=== PATIENT | male | born 1990 | race Caucasian/White ===

== ENCOUNTER 2016-08-27 18:08 | Emergency (ER) | payer OTHER ==
[2016-08-27] MEDS ORDERED: SODIUM CHLORIDE 0.9% 1,000 ML IV STA (18:17)
--- NOTE | 2016-08-27 18:39 | ED ---
General Adult HPI - General Chief complaint: Overdose Stated complaint: Overdose Time Seen by Provider: 08/27/16 18:10 Source: patient, RN notes reviewed, old records reviewed Mode of arrival: EMS Limitations: no limitations - History of Present Illness Initial comments: This is a 25-year-old male here for evaluation because patient presents here for evaluation of syncopal event. Patient was witnessed by bystanders to pass out, EMS arrived and administered Narcan brings patient to the hospital. Patient states that 2 [place] prior to work. He denies any other drugs or alcohol , patient is currently denying erroneous. Denies any complaints except for mild chest pain, CPR was done by bystanders - Related Data Home Medications Medication Instructions Recorded Confirmed HYDROcodone/APAP 10-325MG [[place] 2 tab PO ONCE PRN 08/27/16 08/27/16 10-325] Allergies Allergy/AdvReac Type Severity Reaction Status Date / Time No Known Allergies Allergy Verified 08/27/16 19:15 Review of Systems ROS Statement: Those systems with pertinent positive or pertinent negative responses have been documented in the HPI. ROS Other: All systems not noted in ROS Statement are negative. Past Medical History Past Medical History: No Reported History History of Any Multi-Drug Resistant Organisms: None Reported Past Surgical History: No Surgical Hx Reported Past Psychological History: No Psychological Hx Reported Smoking Status: Current every day smoker Past Alcohol Use History: None Reported Past Drug Use History: Heroin, Prescription Drug Abuse General Exam Limitations: no limitations General appearance: alert, in no apparent distress Head exam: Present: atraumatic, normocephalic, normal inspection Eye exam: Present: normal appearance, PERRL, EOMI. Absent: scleral icterus, conjunctival injection, periorbital swelling ENT exam: Present: normal exam, mucous membranes moist Neck exam: Present: normal inspection. Absent: tenderness, meningismus, lymphadenopathy Respiratory exam: Present: normal lung sounds bilaterally. Absent: respiratory distress, wheezes, rales, rhonchi, stridor Cardiovascular Exam: Present: regular rate, normal rhythm, normal heart sounds. Absent: systolic murmur, diastolic murmur, rubs, gallop, clicks GI/Abdominal exam: Present: soft, normal bowel sounds. Absent: distended, tenderness, guarding, rebound, rigid Extremities exam: Present: normal inspection, full ROM, normal capillary refill. Absent: tenderness, pedal edema, joint swelling, calf tenderness Back exam: Present: normal inspection Neurological exam: Present: alert, oriented X3, CN II-XII intact Psychiatric exam: Present: normal affect, normal mood Skin exam: Present: warm, dry, intact, normal color. Absent: rash Course Vital Signs 08/27/16 08/27/16 18:11 19:11 Temperature 97.8 F Pulse Rate 102 H 126 H Respiratory 18 17 Rate Blood Pressure 155/95 125/69 O2 Sat by Pulse 97 99 Oximetry - Reevaluation(s) Reevaluation #1: 08/27/16 19:30 Patient remains in no acute distress, continued to deny heroin use, awake and alert. Reevaluation #2: 08/27/16 19:30 Patient is medically clear for incarceration EKG Findings - EKG Comments: EKG Findings:: EKG shows sinus tachycardia rate 101, DC 160, QRS 102, QTC 443 Medical Decision Making - Medical Decision Making 20 Cytomel to ER for evaluation. Patient presents here for evaluation status post opiate overdose, response to Narcan, awake and alert, patient currently is denying heroin use. Denies any other drugs or alcohol. Patient will will be discharged home is in no acute distress, chest x-ray shows no fractures despite CPR. Patient can be discharged home - Lab Data Result diagrams: 08/27/16 18:42 08/27/16 18:42 Lab Results 08/27/16 08/27/16 08/27/16 Range/Units 18:42 18:42 18:42 WBC 10.1 (3.8-10.6) k/uL RBC 4.90 (4.30-5.90) m/uL Hgb 15.3 (13.0-17.5) gm/dL Hct 44.9 (39.0-53.0) % MCV 91.5 (80.0-100.0) fL MCH 31.1 (25.0-35.0) pg MCHC 34.0 (31.0-37.0) g/dL RDW 13.5 (11.5-15.5) % Plt Count 239 (150-450) k/uL Neutrophils % 64 % Lymphocytes % 27 % Monocytes % 5 % Eosinophils % 1 % Basophils % 1 % Neutrophils # 6.5 (1.3-7.7) k/uL Lymphocytes # 2.8 (1.0-4.8) k/uL Monocytes # 0.5 (0-1.0) k/uL Eosinophils # 0.1 (0-0.7) k/uL Basophils # 0.1 (0-0.2) k/uL PT (9.0-12.0) sec INR (<1.1) Sodium 139 (137-145) mmol/L Potassium 4.0 (3.5-5.1) mmol/L Chloride 105 (98-107) mmol/L Carbon Dioxide 20 L (22-30) mmol/L Anion Gap 14 mmol/L BUN 16 (9-20) mg/dL Creatinine 0.90 (0.66-1.25) mg/dL Est GFR (MDRD) Af Amer >60 (>60 ml/min/1.73 sqM) Est GFR (MDRD) Non-Af >60 (>60 ml/min/1.73 sqM) Glucose 120 H (74-99) mg/dL Calcium 9.2 (8.4-10.2) mg/dL Total Bilirubin 0.8 (0.2-1.3) mg/dL AST 57 (17-59) U/L ALT 43 (21-72) U/L Alkaline Phosphatase 63 (38-126) U/L Total Creatine Kinase 143 (55-170) U/L CK-MB (CK-2) 0.9 (0.0-2.4) ng/mL CK-MB (CK-2) Rel Index 0.6 Total Protein 7.6 (6.3-8.2) g/dL Albumin 4.9 (3.5-5.0) g/dL Lipase 105 (23-300) U/L Salicylates <1.0 mg/dL Acetaminophen <10.0 ug/mL Serum Alcohol 28 mg/dL 08/27/16 Range/Units 18:42 WBC (3.8-10.6) k/uL RBC (4.30-5.90) m/uL Hgb (13.0-17.5) gm/dL Hct (39.0-53.0) % MCV (80.0-100.0) fL MCH (25.0-35.0) pg MCHC (31.0-37.0) g/dL RDW (11.5-15.5) % Plt Count (150-450) k/uL Neutrophils % % Lymphocytes % % Monocytes % % Eosinophils % % Basophils % % Neutrophils # (1.3-7.7) k/uL Lymphocytes # (1.0-4.8) k/uL Monocytes # (0-1.0) k/uL Eosinophils # (0-0.7) k/uL Basophils # (0-0.2) k/uL PT 11.5 (9.0-12.0) sec INR 1.1 (<1.1) Sodium (137-145) mmol/L Potassium (3.5-5.1) mmol/L Chloride (98-107) mmol/L Carbon Dioxide (22-30) mmol/L Anion Gap mmol/L BUN (9-20) mg/dL Creatinine (0.66-1.25) mg/dL Est GFR (MDRD) Af Amer (>60 ml/min/1.73 sqM) Est GFR (MDRD) Non-Af (>60 ml/min/1.73 sqM) Glucose (74-99) mg/dL Calcium (8.4-10.2) mg/dL Total Bilirubin (0.2-1.3) mg/dL AST (17-59) U/L ALT (21-72) U/L Alkaline Phosphatase (38-126) U/L Total Creatine Kinase (55-170) U/L CK-MB (CK-2) (0.0-2.4) ng/mL CK-MB (CK-2) Rel Index Total Protein (6.3-8.2) g/dL Albumin (3.5-5.0) g/dL Lipase (23-300) U/L Salicylates mg/dL Acetaminophen ug/mL Serum Alcohol mg/dL - Radiology Data Radiology results: report reviewed (Chest x-ray is negative for acute disease), image reviewed Disposition Clinical Impression: Drug overdose, Poisoning by opiate or related narcotic Disposition: HOME SELF-CARE Condition: Good Instructions: Narcotic Abuse (ED), Opioid Overdose (ED) Referrals: Samuel Spencer MD [Primary Care Provider] - 1-2 days
[2016-08-27 18:52] LABS: Basophils # (A) 0.1 k/uL (0-0.2); Basophils % (A) 1 %; CH 31.2; CHCM 34.2; Eosinophils # (A) 0.1 k/uL (0-0.7); Eosinophils % (A) 1 %; HCT 44.9 % (39.0-53.0); HDW 2.08; HGB 15.3 gm/dL (13.0-17.5); Luc # (Auto) 0.18; Luc % (Auto) 2; Lymphocytes # (A) 2.8 k/uL (1.0-4.8); Lymphocytes % (A) 27 %; MCH 31.1 pg (25.0-35.0); MCV 91.5 fL (80.0-100.0); Mean Platelet Volume 7.3; Monocytes # (A) 0.5 k/uL (0-1.0); Monocytes % (A) 5 %; Neutrophils # (A) 6.5 k/uL (1.3-7.7); Neutrophils % (A) 64 %; RDW 13.5 % (11.5-15.5); WBC 10.1 k/uL (3.8-10.6); WBC (Perox) 9.63
[2016-08-27 18:55] LABS: INR 1.1 (<1.1); Prothrombin Time 11.5 sec (9.0-12.0)
[2016-08-27 18:59] LABS: ALT 43 U/L (21-72); AST 57 U/L (17-59); Acetaminophen <10.0 ug/mL; Alcohol 28 mg/dL; Alkaline Phosphatase 63 U/L (38-126); Anion Gap 14 mmol/L; Blood Urea Nitrogen 16 mg/dL (9-20); Calcium 9.2 mg/dL (8.4-10.2); Carbon Dioxide 20 mmol/L (22-30); Chloride 105 mmol/L (98-107); Glucose 120 mg/dL (74-99); Non-African American GFR(MDRD) >60 (>60 ml/min/1.73 sqM); Salicylate <1.0 mg/dL; Sodium 139 mmol/L (137-145); Total Bilirubin 0.8 mg/dL (0.2-1.3); Total Protein 7.6 g/dL (6.3-8.2)
[2016-08-27 19:20] LABS: Creatine Kinase MB 0.9 ng/mL (0.0-2.4)
[2016-08-27 19:58] LABS: Appearance,Urine Clear (Clear); Bilirubin,Urine Negative (Negative); Glucose,Urine (UA) Negative (Negative); Ketones,Urine Negative (Negative); Leukocyte Esterase,Urine Negative (Negative); Nitrite,Urine Negative (Negative); PH, Urine 6.5 (5.0-8.0); Protein,Urine Negative (Negative); Specific Gravity,Urine 1.013 (1.001-1.035); UA Billing (MACRO vs. MICRO) CHEM; Urobilinogen,Urine <2.0 mg/dL (<2.0)
--- NOTE | 2016-08-27 20:09 | XR ---
EXAMINATION TYPE: XR chest 2V DATE OF EXAM: 08/27/2016 COMPARISON: NONE HISTORY: Chest pain TECHNIQUE: Frontal and lateral views of the chest are obtained. FINDINGS: Heart and mediastinum are normal. Lungs are clear. Diaphragm is normal. There are chest le ads. Bony thorax is intact. IMPRESSION: Normal chest
[2016-08-27 21:11] VITALS: BP 119/65; PULSE 108; RESP 20; TEMP 98.1
== END 2016-08-27 21:11 | disposition home or self-care (01) ==
LOC: EC 18:08
DX: T40.601A Poisoning by unspecified narcotics, accidental (unintentional), initial encounter (principal); R07.9 Chest pain, unspecified; F17.200 Nicotine dependence, unspecified, uncomplicated
CPT/HCPCS: 36415; 71020; 80053; 80306; 80320; 81003; 82550; 82553; 83520; 83690; 85025; 85610; 93005; 99285

== ENCOUNTER 2017-07-26 18:52 | Emergency (ER) | payer OTHER ==
[2017-07-26 18:57] VITALS: RESP 16
--- NOTE | 2017-07-26 19:38 | ED ---
General Adult HPI - General Chief complaint: Wound/Laceration Stated complaint: dog bite on lip Time Seen by Provider: 07/26/17 19:04 Source: patient, RN notes reviewed Mode of arrival: ambulatory Limitations: no limitations - History of Present Illness Initial comments: 26-year-old male presents to the emergency department for a chief complaint of laceration to the right upper lip from a dog's tooth. Patient states this happened about an hour ago. Patient states he had his head against the dog's head when the dog moved and accidentally lacerated the patient's lip with a tooth. Patient states this was completely non-aggressive. Patient denies any other injuries. Patient denies any other lacerations or bites. Patient's last tetanus shot was less than 5 years ago. Patient has no other complaints at this time including fever, shortness of breath, chest pain, abdominal pain, nausea or vomiting, headache, or visual changes. - Related Data Previous Rx's Medication Instructions Recorded Amoxicillin/Potassium Clav 1 tab PO Q12HR #20 tab 07/26/17 [Augmentin 875-125 Tablet] Allergies Allergy/AdvReac Type Severity Reaction Status Date / Time No Known Allergies Allergy Verified 07/26/17 18:57 Review of Systems ROS Statement: Those systems with pertinent positive or pertinent negative responses have been documented in the HPI. ROS Other: All systems not noted in ROS Statement are negative. Past Medical History Past Medical History: No Reported History History of Any Multi-Drug Resistant Organisms: None Reported Past Surgical History: No Surgical Hx Reported Past Psychological History: No Psychological Hx Reported Smoking Status: Current every day smoker Past Alcohol Use History: Occasional Past Drug Use History: None Reported, Heroin, Prescription Drug Abuse General Exam Limitations: no limitations General appearance: alert, in no apparent distress Head exam: Present: atraumatic, normocephalic, normal inspection Eye exam: Present: normal appearance ENT exam: Present: normal oropharynx (no lacerations or punctures inside the mouth), normal external ear exam. Absent: normal exam (Patient has an external vertical 2 cm laceration to the right upper lip. Laceration does not extend through the entire lip. ) Neck exam: Present: normal inspection Respiratory exam: Present: normal lung sounds bilaterally. Absent: respiratory distress, wheezes, rales, rhonchi, stridor Cardiovascular Exam: Present: regular rate, normal rhythm, normal heart sounds. Absent: systolic murmur, diastolic murmur, rubs, gallop, clicks Course Vital Signs 07/26/17 18:53 Temperature 98.1 F Pulse Rate 99 Respiratory 16 Rate Blood Pressure 127/57 O2 Sat by Pulse 98 Oximetry Medical Decision Making - Medical Decision Making 26-year-old male presents to the emergency department for a chief complaint of laceration to the right upper lip. Patient lacerated her lip on a dog's tooth. It was nonaggressive. Patient does not want to fill out dog bite paperwork. Patient's last tetanus shot was less than 5 years ago. The 2 cm laceration is on the external right upper lip. It does not extend through the entire lip. No other injuries on the patient. Patient is in no distress. No lacerations or punctures inside the mouth. Wound was numbed with lidocaine and cleaned thoroughly with saline jet irrigation and iodine. One suture was used to tack the wound together while allowing for drainage of any foreign bacteria and prevention of infection. Patient was given a prescription for Augmentin. He will return to the emergency department if he notices any worsening symptoms or signs of infection such as spreading redness or drainage and fever. These were discussed with the patient. He will take Motrin and Tylenol for pain. He will follow up with primary care in 1-2 days. Disposition Clinical Impression: Laceration, Dog bite of skin of lip Disposition: HOME SELF-CARE Condition: Good Instructions: Animal Bite (ED), Care For Your Stitches (ED), Laceration (ED) Additional Instructions: Please take Motrin and Tylenol for pain. Please take antibiotic as directed. Return to the emergency department in 5 days to have suture removed. Return earlier if you notice any signs of infection such as spreading redness, drainage , or fever. Follow-up with primary care in 1-2 days. Prescriptions: Amoxicillin/Potassium Clav [Augmentin 875-125 Tablet] 1 tab PO Q12HR #20 tab Is patient prescribed a controlled substance at d/c from ED?: No Referrals: Samuel Spencer MD [STAFF PHYSICIAN] - 1-2 days Time of Disposition: 19:37
[2017-07-26 19:45] VITALS: BP 116/57; PULSE 70; TEMP 97.6
== END 2017-07-26 19:43 | disposition home or self-care (01) ==
LOC: EC 18:52
DX: S01.551A Open bite of lip, initial encounter (principal); F17.200 Nicotine dependence, unspecified, uncomplicated; W54.0XXA Bitten by dog, initial encounter
CPT/HCPCS: 99282

== ENCOUNTER 2018-12-24 14:27 | Emergency (ER) | payer OTHER ==
[2018-12-24 14:51] VITALS: RESP 18; TEMP 97.4
[2018-12-24 16:16] LABS: Basophils % (A) 0 %; Eosinophils # (A) 0.1 k/uL (0-0.7); Eosinophils % (A) 1 %; HCT 46.5 % (39.0-53.0); HGB 15.6 gm/dL (13.0-17.5); Lymphocytes # (A) 2.8 k/uL (1.0-4.8); Lymphocytes % (A) 37 %; MCH 30.4 pg (25.0-35.0); MCHC 33.5 g/dL (31.0-37.0); MCV 90.7 fL (80.0-100.0); Mean Platelet Volume 5.4; Monocytes # (A) 0.5 k/uL (0-1.0); Monocytes % (A) 6 %; Neutrophils % (A) 53 %; Platelet Count 311 k/uL (150-450); RBC 5.13 m/uL (4.30-5.90); RDW 12.9 % (11.5-15.5); WBC 7.6 k/uL (3.8-10.6)
--- NOTE | 2018-12-24 16:17 | XR ---
EXAMINATION TYPE: XR chest 2V DATE OF EXAM: 12/24/2018 COMPARISON: NONE HISTORY: Chest pain TECHNIQUE: Frontal and lateral views of the chest are obtained. FINDINGS: There is no focal air space opacity. No evidence for pneumothorax. No pleural effusion. The cardiac silhouette size is within normal limits. The osseous structures are grossly intact. IMPRESSION: 1. No acute cardiopulmonary process.
[2018-12-24 16:22] LABS: ALT 91 U/L (21-72); AST 48 U/L (17-59); Acetaminophen <10.0 ug/mL; African American GFR (CKD) >90 (>60 ml/min/1.73 sqM); Albumin 4.8 g/dL (3.5-5.0); Alcohol <10 mg/dL; Alkaline Phosphatase 60 U/L (38-126); Anion Gap 9 mmol/L; Blood Urea Nitrogen 9 mg/dL (9-20); Calcium 10.2 mg/dL (8.4-10.2); Carbon Dioxide 28 mmol/L (22-30); Chloride 104 mmol/L (98-107); Glucose 105 mg/dL (74-99); Potassium 4.3 mmol/L (3.5-5.1); Salicylate <1.0 mg/dL; Sodium 141 mmol/L (137-145); Total Bilirubin 0.6 mg/dL (0.2-1.3); Total Protein 8.3 g/dL (6.3-8.2)
--- NOTE | 2018-12-24 16:41 | CT ---
EXAMINATION TYPE: CT brain wo con DATE OF EXAM: 12/24/2018 COMPARISON: None HISTORY: altered mental status, insomnia CT DLP: 1029.[address] of the brain was performed. The ventricles, basal cisterns and sulci overlying the cerebral convexities demonstrate a normal appe arance. There is no evidence for intracranial hemorrhage or sulcal effacement. No mass effects are seen. Osseous calvarium is intact. If symptoms persist consider MRI as clinically warranted. IMPRESSION: 1. No acute intracranial process is seen at this time.
[2018-12-24 17:37] LABS: Amorphous Sediment,Urine Rare /hpf; Appearance,Urine Turbid (Clear); Bilirubin,Urine Negative (Negative); Blood,Urine Negative (Negative); Color,Urine Yellow; Glucose,Urine (UA) Negative (Negative); Granular Casts,Urine 7 /lpf (0); Ketones,Urine Negative (Negative); Leukocyte Esterase,Urine Negative (Negative); Mucus,Urine Few /hpf; Nitrite,Urine Negative (Negative); Protein,Urine Trace (Negative); Specific Gravity,Urine 1.022 (1.001-1.035)
[2018-12-24 17:44] LABS: Amphetamine Screen,Urine Not Detected (NotDetected); Barbiturate Screen,Urine Not Detected (NotDetected); Benzodiazepines Screen,Urine Not Detected (NotDetected); Cocaine Screen,Urine Not Detected (NotDetected); Methadone Screen, Urine Not Detected (NotDetected); Opiate Screen,Urine Not Detected (NotDetected); Oxycodone Screen, Urine Not Detected (NotDetected); Phencyclidine Screen,Urine Not Detected (NotDetected); Tricyclic Antidepressant,Urine Not Detected (NotDetected); Urn Cannabinoid Scrn Not Detected (NotDetected)
--- NOTE | 2018-12-24 18:10 | ED ---
General Adult HPI - General Chief complaint: Dizziness Stated complaint: Dizziness Time Seen by Provider: 12/24/18 14:50 Source: patient Mode of arrival: ambulatory Limitations: no limitations - History of Present Illness Initial comments: The patient is a 28-year-old male with no past medical history presents to the emergency room with reported insomnia and dizziness for the past month. He reports that his symptoms have been progressively getting worse. States that he suffers from extreme anxiety. He has had difficulty sleeping. Will only get 1- 2 hours of sleep per night. States that during the day he will have the sensation of being off balance. Denies vertiginous symptoms or presyncopal episodes. Denies any blunt head trauma. No visual changes or headaches. No fevers or chills. No reported seizure-like activity. Denies any use of [id number] medications or illicit drugs. Denies any unilateral numbness or weakness. He was with his mother today. Reportedly got very dizzy and had difficulty walking. They did decide to transport him to the hospital. On the way in they reported that the patient was hallucinating. Patient reported on 3 different occasions that he thought they were in the wrong hy[place]. While sitting in the waiting room, the patient reached for remote that wasn't there. States he has had visual changes like this before. It happened several months ago where he thought he saw blood in his bed and ended up calling EMS. No confusion reported from family members at this time. He denies any changes in his bowel or bladder habits. No chest pain or shortness of breath. There are no other alleviating, precipitating or modifying factors - Related Data Previous Rx's Medication Instructions Recorded Amoxicillin/Potassium Clav 1 tab PO Q12HR #20 tab 07/26/17 [Augmentin 875-125 Tablet] Allergies Allergy/AdvReac Type Severity Reaction Status Date / Time No Known Allergies Allergy Verified 12/24/18 14:51 Review of Systems ROS Statement: Those systems with pertinent positive or pertinent negative responses have been documented in the HPI. ROS Other: All systems not noted in ROS Statement are negative. Past Medical History Past Medical History: No Reported History History of Any Multi-Drug Resistant Organisms: None Reported Past Surgical History: No Surgical Hx Reported Past Psychological History: No Psychological Hx Reported Smoking Status: Current every day smoker Past Alcohol Use History: None Reported Past Drug Use History: None Reported, Heroin, Prescription Drug Abuse General Exam Limitations: no limitations General appearance: alert, in no apparent distress Head exam: Present: atraumatic, normocephalic, normal inspection Eye exam: Present: normal appearance, PERRL, EOMI. Absent: scleral icterus, conjunctival injection, periorbital swelling ENT exam: Present: normal exam, mucous membranes moist Neck exam: Present: normal inspection. Absent: tenderness, meningismus, lymphadenopathy Respiratory exam: Present: normal lung sounds bilaterally. Absent: respiratory distress, wheezes, rales, rhonchi, stridor Cardiovascular Exam: Present: regular rate, normal rhythm, normal heart sounds. Absent: systolic murmur, diastolic murmur, rubs, gallop, clicks GI/Abdominal exam: Present: soft, normal bowel sounds. Absent: distended, tenderness, guarding, rebound, rigid Extremities exam: Present: normal inspection, full ROM, normal capillary refill. Absent: tenderness, pedal edema, joint swelling, calf tenderness Back exam: Present: normal inspection Neurological exam: Present: alert, oriented X3, CN II-XII intact Psychiatric exam: Present: normal affect, normal mood Skin exam: Present: warm, dry, intact, normal color. Absent: rash Course Vital Signs 12/24/18 12/24/18 14:48 18:16 Temperature 97.4 F L Pulse Rate 85 72 Respiratory 18 18 Rate Blood Pressure 125/76 122/74 O2 Sat by Pulse 98 98 Oximetry EKG Findings - EKG Comments: EKG Findings:: EKG demonstrates a normal sinus rhythm with a ventricular rate of 74. [place] interval is 172. QRS 90. QTC of 406. There are no acute ST segment elevations or depressions concerning for ischemic changes Medical Decision Making - Medical Decision Making Upon arrival the patient is placed in room 23. There are history of physical exam was performed. We did complete a 12-lead EKG in the patient. I did recommend laboratory studies and a CT the patient's brain. Laboratory studies are essentially unremarkable. Urinalysis shows few mucus. Salicylate, acetaminophen and alcohol is negative. Urine drug screen is negative. CT of the patient's brain is unremarkable. I do and to the room to tell the patient his results. He is dressed and stating that he is ready to go home. I do believe that the patient needs further workup. This includes an EEG and MRI. The patient and his family at bedside understood this. I did refer him to Dr. Riley's office as he does not have a primary care physician. The patient has any new or worsening symptoms he should be brought back to the emergency room. I instructed he shouldn't drive while having these abnormal symptoms. He understood. He is discharged home in stable condition - Lab Data Result diagrams: 12/24/18 16:04 12/24/18 16:04 Lab Results 12/24/18 12/24/18 12/24/18 Range/Units 16:04 16:04 17:19 WBC 7.6 (3.8-10.6) k/uL RBC 5.13 (4.30-5.90) m/uL Hgb 15.6 (13.0-17.5) gm/dL Hct 46.5 (39.0-53.0) % MCV 90.7 (80.0-100.0) fL MCH 30.4 (25.0-35.0) pg MCHC 33.5 (31.0-37.0) g/dL RDW 12.9 (11.5-15.5) % Plt Count 311 (150-450) k/uL Neutrophils % 53 % Lymphocytes % 37 % Monocytes % 6 % Eosinophils % 1 % Basophils % 0 % Neutrophils # 4.0 (1.3-7.7) k/uL Lymphocytes # 2.8 (1.0-4.8) k/uL Monocytes # 0.5 (0-1.0) k/uL Eosinophils # 0.1 (0-0.7) k/uL Basophils # 0.0 (0-0.2) k/uL Sodium 141 (137-145) mmol/L Potassium 4.3 (3.5-5.1) mmol/L Chloride 104 (98-107) mmol/L Carbon Dioxide 28 (22-30) mmol/L Anion Gap 9 mmol/L BUN 9 (9-20) mg/dL Creatinine 0.84 (0.66-1.25) mg/dL Est GFR (CKD-EPI)AfAm >90 (>60 ml/min/1.73 sqM) Est GFR (CKD-EPI)NonAf >90 (>60 ml/min/1.73 sqM) Glucose 105 H (74-99) mg/dL Calcium 10.2 (8.4-10.2) mg/dL Total Bilirubin 0.6 (0.2-1.3) mg/dL AST 48 (17-59) U/L ALT 91 H (21-72) U/L Alkaline Phosphatase 60 (38-126) U/L Total Protein 8.3 H (6.3-8.2) g/dL Albumin 4.8 (3.5-5.0) g/dL TSH 1.270 (0.465-4.680) mIU/L Urine Color Yellow Urine Appearance Turbid (Clear) Urine pH 7.0 (5.0-8.0) Ur Specific [place] 1.022 (1.001-1.035) Urine Protein Trace H (Negative) Urine Glucose (UA) Negative (Negative) Urine Ketones Negative (Negative) Urine Blood Negative (Negative) Urine Nitrite Negative (Negative) Urine Bilirubin Negative (Negative) Urine Urobilinogen 2.0 (<2.0) mg/dL Ur Leukocyte Esterase Negative (Negative) Amorphous Sediment Rare H (None) /hpf Granular Casts 7 (0) /lpf Urine Mucus Few H (None) /hpf Salicylates <1.0 mg/dL Urine Opiates Screen Not Detected (NotDetected) Ur Oxycodone Screen Not Detected (NotDetected) Urine Methadone Screen Not Detected (NotDetected) Ur Propoxyphene Screen Not Detected (NotDetected) Acetaminophen <10.0 ug/mL Ur Barbiturates Screen Not Detected (NotDetected) U Tricyclic Antidepress Not Detected (NotDetected) Ur Phencyclidine Scrn Not Detected (NotDetected) Ur Amphetamines Screen Not Detected (NotDetected) U Methamphetamines Scrn Not Detected (NotDetected) U Benzodiazepines Scrn Not Detected (NotDetected) Urine Cocaine Screen Not Detected (NotDetected) U Marijuana (THC) Screen Not Detected (NotDetected) Serum Alcohol <10 mg/dL Disposition Clinical Impression: Ataxia Disposition: HOME SELF-CARE Condition: Serious Instructions (If sedation given, give patient instructions): Dizziness (ED) Additional Instructions: Please return to the emergency department for any new or worsening symptoms. You need to follow up with a primary care doctor and have further studies performed to include an EEG and an MRI. Is patient prescribed a controlled substance at d/c from ED?: No Referrals: None,Stated [Primary Care Provider] - 1-2 days Mike Riley MD [REFERRING] - 1-2 days Time of Disposition: 18:09
[2018-12-24 18:18] VITALS: BP 122/74; PULSE 72
== END 2018-12-24 18:17 | disposition home or self-care (01) ==
LOC: EC 14:27
DX: R27.0 Ataxia, unspecified (principal); F41.9 Anxiety disorder, unspecified; F17.200 Nicotine dependence, unspecified, uncomplicated; F19.10 Other psychoactive substance abuse, uncomplicated
CPT/HCPCS: 36415; 93005; 80053; 84443; 85025; 81001; 80306; 83520; 71046; 70450; 99284; G0480 ×2; 80320; 80329

== ENCOUNTER 2020-11-07 11:02 | Inpatient (IN) | payer OTHER ==
[2020-11-07] MEDS ORDERED: SODIUM CHLORIDE 0.9% 1,000 ML IV STA ×2 (11:33→11:36)
--- NOTE | 2020-11-07 11:38 | ED ---
General Adult HPI - General Chief complaint: Skin/Abscess/Foreign Body Stated complaint: Rt Arm Swelling/Vomiting Time Seen by Provider: 11/07/20 11:13 Source: patient, RN notes reviewed Mode of arrival: wheelchair Limitations: no limitations - History of Present Illness Initial comments: 29-year-old male presents to the emergency room for a chief complaint of right arm infection. Patient states that 2 weeks ago he relapsed on heroin. States that he last used the right arm 3-4 days ago and the infection started around that time. Patient had a fever of 100.9 today. States it is painful to move his elbow but he is able to do so. Patient has also not been eating or drinking much and has been vomiting for the past couple weeks that he thinks is related to his relapse. However it has worsened in the past few days he does feel dehydrated. - Related Data Home Medications Medication Instructions Recorded Confirmed No Known Home Medications 11/07/20 11/07/20 Allergies Allergy/AdvReac Type Severity Reaction Status Date / Time No Known Allergies Allergy Verified 11/07/20 11:54 Review of Systems ROS Statement: Those systems with pertinent positive or pertinent negative responses have been documented in the HPI. ROS Other: All systems not noted in ROS Statement are negative. Past Medical History Past Medical History: No Reported History History of Any Multi-Drug Resistant Organisms: None Reported Past Surgical History: No Surgical Hx Reported Past Psychological History: No Psychological Hx Reported Smoking Status: Current every day smoker Past Alcohol Use History: None Reported Past Drug Use History: Heroin, Prescription Drug Abuse General Exam Limitations: no limitations General appearance: alert Head exam: Present: atraumatic Eye exam: Present: normal appearance, PERRL, EOMI. Absent: scleral icterus, conjunctival injection ENT exam: Present: normal exam, mucous membranes moist Neck exam: Present: normal inspection, full ROM. Absent: tenderness Respiratory exam: Present: normal lung sounds bilaterally. Absent: respiratory distress, wheezes Cardiovascular Exam: Present: regular rate, normal rhythm, normal heart sounds GI/Abdominal exam: Present: soft, normal bowel sounds. Absent: distended, tenderness Extremities exam: Present: full ROM (Full range of motion of the right wrist elbow and shoulder.), tenderness (Tenderness to the right upper extremity), normal capillary refill (cap refill less than 2 seconds, radial pulse 2+.), other (Patient has significant erythema with mild edema extending from the mid forearm volar aspect up through the proximal humeral area.) Course Vital Signs 11/07/20 11:06 Temperature 98.5 F Pulse Rate 114 H Respiratory 18 Rate Blood Pressure 118/58 O2 Sat by Pulse 95 Oximetry Medical Decision Making - Medical Decision Making patient presents with a 103.2 fever. Tachycardia of 114 likely secondary to fever. Physical exam does reveal significant cellulitis of the right arm. I do not appreciate any area concerning for abscess at this time. White count is 14.6 with a left shift. Lactic acid normal 1.4. CRP is elevated 15.7. Notably patient does have a hyponatremia of 123. Patient was given a liter of fluids but will be put on 75 mL NS per hour. Patient was given Rocephin initially. He will be started on vancomycin. We will transition him to Unasyn instead of Rocephin. Case discussed with Dr. Rojas. Pt admitted. - Lab Data Result diagrams: 11/07/20 11:52 11/07/20 11:52 Lab Results 11/07/20 11/07/20 11/07/20 Range/Units 11:52 11:52 11:52 WBC 14.6 H (3.8-10.6) k/uL RBC 4.64 (4.30-5.90) m/uL Hgb 14.6 (13.0-17.5) gm/dL Hct 40.7 (39.0-53.0) % MCV 87.8 (80.0-100.0) fL MCH 31.4 (25.0-35.0) pg MCHC 35.8 (31.0-37.0) g/dL RDW 12.0 (11.5-15.5) % Plt Count 162 (150-450) k/uL MPV 8.9 Neutrophils % 88 % Lymphocytes % 4 % Monocytes % 7 % Eosinophils % 0 % Basophils % 0 % Neutrophils # 12.9 H (1.3-7.7) k/uL Lymphocytes # 0.5 L (1.0-4.8) k/uL Monocytes # 1.1 H (0-1.0) k/uL Eosinophils # 0.0 (0-0.7) k/uL Basophils # 0.0 (0-0.2) k/uL Sodium 123 L (137-145) mmol/L Potassium 4.1 (3.5-5.1) mmol/L Chloride 87 L (98-107) mmol/L Carbon Dioxide 26 (22-30) mmol/L Anion Gap 10 mmol/L BUN 13 (9-20) mg/dL Creatinine 0.72 (0.66-1.25) mg/dL Est GFR (CKD-EPI)AfAm >90 (>60 ml/min/1.73 sqM) Est GFR (CKD-EPI)NonAf >90 (>60 ml/min/1.73 sqM) Glucose 153 H (74-99) mg/dL Plasma Lactic Acid Steven 1.4 (0.7-2.0) mmol/L Calcium 8.3 L (8.4-10.2) mg/dL Total Bilirubin 0.8 (0.2-1.3) mg/dL AST 67 H (17-59) U/L ALT 52 H (4-49) U/L Alkaline Phosphatase 77 (38-126) U/L C-Reactive Protein 15.7 H (<1.0) mg/dL Total Protein 6.5 (6.3-8.2) g/dL Albumin 3.3 L (3.5-5.0) g/dL Disposition Clinical Impression: Fever, Cellulitis, IV drug abuse, Leukocytosis Disposition: ADMITTED IP TO THIS HOSP Is patient prescribed a controlled substance at d/c from ED?: No Referrals: None,Stated [Primary Care Provider] - 1-2 days Time of Disposition: 13:18
[2020-11-07] MEDS ORDERED: cefTRIAXone IN SWFI 1,000 MG/10 ML SYRINGE IVP STA (11:39)
[2020-11-07] MEDS ORDERED: ACETAMINOPHEN TAB 500 MG TAB PO STA (12:01)
[2020-11-07] MEDS ORDERED: KETOROLAC 15 MG/ML 1 ML VIAL IVP STA (12:01)
[2020-11-07] MEDS ORDERED: ONDANSETRON 4 MG/2 ML VIAL IVP STA (12:02)
--- NOTE | 2020-11-07 12:14 | XR ---
EXAMINATION TYPE: XR forearm RT DATE OF EXAM: 11/07/2020 COMPARISON: NONE HISTORY: Pain Two views of the forearm demonstrate that the osseous structures appear to be intact and the joint sp aces appear to be preserved. There is no acute fracture or dislocation. View soft tissue tissue dougie a noted. IMPRESSION: 1. Soft tissue edema.
--- NOTE | 2020-11-07 12:16 | XR ---
EXAMINATION TYPE: XR humerus RT DATE OF EXAM: 11/07/2020 COMPARISON: NONE HISTORY: Pain and swelling TECHNIQUE: 2 views submitted. FINDINGS: The osseous structures are intact and the joint spaces are preserved. Soft tissue edema noted. Nonsp ecific cortical thickening involving the distal diaphysis of the humerus seen on the oblique view onl y. IMPRESSION: 1. Soft tissue edema.
[2020-11-07] MEDS ORDERED: VANCOMYCIN IV PER PHARMACY 1 EACH MISC MISCELLANE PRN (12:32)
[2020-11-07] MEDS ORDERED: VANCOMYCIN 1,250 MG in SODIUM CHLORIDE 0.9% 250 ML IVPB STA (12:36)
[2020-11-07 12:38] LABS: ALT 52 U/L (4-49); AST 67 U/L (17-59); African American GFR (CKD) >90 (>60 ml/min/1.73 sqM); Albumin 3.3 g/dL (3.5-5.0); Alkaline Phosphatase 77 U/L (38-126); Anion Gap 10 mmol/L; Blood Urea Nitrogen 13 mg/dL (9-20); Calcium 8.3 mg/dL (8.4-10.2); Carbon Dioxide 26 mmol/L (22-30); Chloride 87 mmol/L (98-107); Glucose 153 mg/dL (74-99); Non-African American GFR(CKD) >90 (>60 ml/min/1.73 sqM); Potassium 4.1 mmol/L (3.5-5.1); Sodium 123 mmol/L (137-145); Total Bilirubin 0.8 mg/dL (0.2-1.3); Total Protein 6.5 g/dL (6.3-8.2)
[2020-11-07 12:46] LABS: Basophils % (A) 0 %; Eosinophils % (A) 0 %; HCT 40.7 % (39.0-53.0); HGB 14.6 gm/dL (13.0-17.5); Lymphocytes # (A) 0.5 k/uL (1.0-4.8); Lymphocytes % (A) 4 %; MCH 31.4 pg (25.0-35.0); MCHC 35.8 g/dL (31.0-37.0); MCV 87.8 fL (80.0-100.0); Mean Platelet Volume 8.9; Monocytes # (A) 1.1 k/uL (0-1.0); Monocytes % (A) 7 %; Neutrophils # (A) 12.9 k/uL (1.3-7.7); Neutrophils % (A) 88 %; Platelet Count 162 k/uL (150-450); RBC 4.64 m/uL (4.30-5.90); WBC 14.6 k/uL (3.8-10.6)
[2020-11-07 12:50] LABS: C Reactive Protein 15.7 mg/dL (<1.0)
[2020-11-07] MEDS ORDERED: ONDANSETRON 4 MG/2 ML VIAL IVP PRN (13:03)
[2020-11-07] MEDS ORDERED: NALOXONE 0.4 MG/ML 1 ML VIAL IV PRN (13:03)
[2020-11-07] MEDS ORDERED: ACETAMINOPHEN TAB 325 MG TAB PO PRN (13:03)
--- NOTE | 2020-11-07 16:33 | P.HPIM ---
History of Present Illness H&P Date: 11/07/20 This is a 29-year-old male with past medical history of IV heroin abuse who presented to the hospital with worsening right arm pain and swelling. Patient said that this is being going on for a few days and getting progressively worse. He reports fevers and chills at home. He reports feeling nauseated and poor by mouth intake. His mom is at bedside and informed me that patient was clean for some time and now he had a relapse of IV heroin use. Review of Systems Review of system: 14 points review of systems were obtained and were negative except to what were mentioned in the HPI. Past Medical History Past Medical History: No Reported History History of Any Multi-Drug Resistant Organisms: None Reported Past Surgical History: No Surgical Hx Reported Past Psychological History: No Psychological Hx Reported Smoking Status: Current every day smoker Past Alcohol Use History: None Reported Past Drug Use History: Heroin, Prescription Drug Abuse Medications and Allergies Home Medications Medication Instructions Recorded Confirmed Type No Known Home Medications 11/07/20 11/07/20 History Allergies Allergy/AdvReac Type Severity Reaction Status Date / Time No Known Allergies Allergy Verified 11/07/20 11:54 Physical Exam Vitals: Vital Signs Temp Pulse Resp BP Pulse Ox 11/07/20 15:36 98.8 F 102 H 18 127/68 98 11/07/20 11:06 98.5 F 114 H 18 118/58 95 Intake and Output 11/07/20 11/07/20 11/07/20 06:59 14:59 22:59 Other: Weight 68.039 kg General: The patient is awake and alert, in no distress Eye: there is normal conjunctiva bilaterally. Neck: The neck is supple, there is no JVD. Cardiovascular: Normal S1-S2, no S3-S4, no murmurs. Respiratory: Lungs clear to auscultation bilaterally Gastrointestinal: Abdomen is soft, nontender Musculoskeletal: There is no pedal edema. There is significant erythema in the mid arm area extending from the forearm all the way through the proximal humeral area. There is suspicious induration Neurological:. Speech is normal. Skin: Skin is warm and dry Results CBC & Chem 7: 11/07/20 11:52 11/07/20 11:52 Labs: Abnormal Lab Results - Last 24 Hours (Table) 11/07/20 11/07/20 Range/Units 11:52 11:52 WBC 14.6 H (3.8-10.6) k/uL Neutrophils # 12.9 H (1.3-7.7) k/uL Lymphocytes # 0.5 L (1.0-4.8) k/uL Monocytes # 1.1 H (0-1.0) k/uL Sodium 123 L (137-145) mmol/L Chloride 87 L (98-107) mmol/L Glucose 153 H (74-99) mg/dL Calcium 8.3 L (8.4-10.2) mg/dL AST 67 H (17-59) U/L ALT 52 H (4-49) U/L C-Reactive Protein 15.7 H (<1.0) mg/dL Albumin 3.3 L (3.5-5.0) g/dL Assessment and Plan Assessment: 1. Sepsis without septic shock 2. Right arm cellulitis with concerns about possible abscess formation 3. Hypovolemic hyponatremia 4. IV heroin abuse Today, I reviewed his medication list and lab work results. Patient started on broad-spectrum antibiotic with IV vancomycin and Unasyn. Blood culture sent and pending. I would obtain ultrasound of the right upper extremity to rule out abscess formation. Continue supportive care otherwise. Aggressive IV fluid hydration. Sodium level every 6 hours. Avoid overcorrection. Keep sodium less than 135. Patient was counseled extensively about the importance of stopping using drugs.
--- NOTE | 2020-11-07 17:13 | US ---
EXAMINATION TYPE: US extremity nonvasc mass RT DATE OF EXAM: 11/07/2020 COMPARISON: NONE CLINICAL HISTORY: r/u RUE abscess. Right upper arm redness. Scanning was performed directly over right upper arm redness. There is edema noted. There is not a dr felinable fluid collection seen. There is thrombosed vessel seen. This appears to be the cephalic vein. It is thrombosed without flow and non compressible. IMPRESSION: Findings consistent with thrombophlebitis of the cephalic vein. No evidence of fluid collection.
[2020-11-07] MEDS: AMPICILLIN-SULBACTAM 3 GM in SODIUM CHLORIDE 0.9% 100 ML IVPB SCH ×2 (18:08→23:18)
[2020-11-07] MEDS: SODIUM CHLORIDE 0.9% 1,000 ML IV SCH (18:08)
[2020-11-07 20:18] LABS: C Reactive Protein 8.5 mg/dL (<1.0)
[2020-11-07] MEDS: VANCOMYCIN 1,250 MG in SODIUM CHLORIDE 0.9% 250 ML IVPB SCH (20:42)
[2020-11-07] MEDS: KETOROLAC 15 MG/ML 1 ML VIAL IVP PRN (21:47)
[2020-11-08] MEDS: VANCOMYCIN 1,250 MG in SODIUM CHLORIDE 0.9% 250 ML IVPB SCH ×3 (05:21→21:40)
[2020-11-08 05:58] LABS: Basophils % (A) 0 %; Eosinophils % (A) 0 %; HCT 40.4 % (39.0-53.0); HGB 14.1 gm/dL (13.0-17.5); Lymphocytes % (A) 8 %; MCH 31.7 pg (25.0-35.0); MCHC 34.9 g/dL (31.0-37.0); MCV 90.9 fL (80.0-100.0); Mean Platelet Volume 8.9; Monocytes # (A) 0.5 k/uL (0-1.0); Monocytes % (A) 4 %; Neutrophils # (A) 9.9 k/uL (1.3-7.7); Neutrophils % (A) 84 %; Platelet Count 157 k/uL (150-450); RBC 4.44 m/uL (4.30-5.90); RDW 12.1 % (11.5-15.5); WBC 11.8 k/uL (3.8-10.6)
[2020-11-08] MEDS: SODIUM CHLORIDE 0.9% 1,000 ML IV SCH (06:20)
[2020-11-08] MEDS: AMPICILLIN-SULBACTAM 3 GM in SODIUM CHLORIDE 0.9% 100 ML IVPB SCH ×3 (07:54→17:49)
[2020-11-08 10:08] LABS: Anion Gap 6.6 mmol/L (4.00-12.00); BUN/Creat Ratio 16.25 Ratio (12.00-20.00); Calcium 7.8 mg/dL (8.7-10.3); Carbon Dioxide 27.4 mmol/L (21.6-31.8); Potassium 3.4 mmol/L (3.5-5.5)
[2020-11-08] MEDS ORDERED: POTASSIUM CHLORIDE ER 20 MEQ TAB.ER PO STA (14:41)
--- NOTE | 2020-11-08 14:44 | P.PN ---
Subjective Patient is doing about the same compared to yesterday. Right arm is swollen and red is not improved compared to yesterday. Objective - Vital Signs Vital signs: Vital Signs Temp 97.6 F 11/08/20 12:25 Pulse 84 11/08/20 12:25 Resp 14 11/08/20 12:25 BP 112/64 11/08/20 13:32 Pulse Ox 99 11/08/20 12:25 Intake & Output 11/07/20 11/08/20 11/08/20 18:59 06:59 18:59 Intake Total 200 590 Balance 200 590 Weight 68.039 kg Intake: Oral 200 590 Other: Voiding Method Toilet Toilet Urinal Urinal # Voids 2 - Exam General: The patient is awake and alert, in no distress Eye: there is normal conjunctiva bilaterally. Neck: The neck is supple, there is no JVD. Cardiovascular: Normal S1-S2, no S3-S4, no murmurs. Respiratory: Lungs clear to auscultation bilaterally Gastrointestinal: Abdomen is soft, nontender Musculoskeletal: There is no pedal edema. Neurological:. Speech is normal. Skin: Skin is warm and dry - Labs CBC & Chem 7: 11/08/20 05:32 11/08/20 05:32 Labs: Abnormal Lab Results - Last 24 Hours (Table) 11/07/20 11/07/20 11/07/20 Range/Units 19:03 19:03 19:03 WBC (3.8-10.6) k/uL Neutrophils # (1.3-7.7) k/uL ESR 37 H (0-15) mm/Hr Sodium 127 L 128 L (137-145) mmol/L Potassium (3.5-5.5) mmol/L Glucose (70-110) mg/dL Calcium (8.7-10.3) mg/dL C-Reactive Protein 8.5 H (<1.0) mg/dL 11/08/20 11/08/20 Range/Units 05:32 05:32 WBC 11.8 H (3.8-10.6) k/uL Neutrophils # 9.9 H (1.3-7.7) k/uL ESR (0-15) mm/Hr Sodium 132 L (137-145) mmol/L Potassium 3.4 L (3.5-5.5) mmol/L Glucose 129 H (70-110) mg/dL Calcium 7.8 L (8.7-10.3) mg/dL C-Reactive Protein (<1.0) mg/dL Microbiology - Last 24 Hours (Table) 11/07/20 11:52 Blood Culture Gram Stain - Preliminary Blood Blood Culture - Preliminary Strep pyogenes (grp a) 11/07/20 11:52 Blood Culture - Final Blood 11/07/20 11:52 Blood Culture Gram Stain - Preliminary Blood 11/07/20 11:52 Blood Culture - Final Blood Assessment and Plan Assessment: 1. Sepsis without septic shock 2. Right arm cellulitis with no evidence of abscess formation on ultrasound 3. Group A strep bacteremia awaiting repeat blood culture 4. Thrombophlebitis of the cephalic vein in the right arm 5. Hypovolemic hyponatremia, improved with IV fluid hydration 6. IV heroin abuse 7. Hypokalemia, replacement ordered Today, I reviewed his medication list and lab work results. Patient started on broad-spectrum antibiotic with IV vancomycin and Unasyn. Awaiting infectious disease evaluation. Continue supportive care otherwise. Discontinue IV fluids Patient was counseled extensively about the importance of stopping using drugs.
[2020-11-08] MEDS ORDERED: VANCOMYCIN TROUGH DUE 1 EACH MISC MISCELLANE ONE (20:00)
--- NOTE | 2020-11-08 21:56 | P.CONS ---
History of Present Illness - Reason for Consult Consult date: 11/08/20 Bacteremia Requesting physician: Miles Bennett - Chief Complaint right arm pain and redness x 4 days - History of Present Illness History of present illness : Patient is a 29-year-old male with a past medical history sniffing for IV drug use patient presented to [facility] ER yesterday morning for evaluation of right arm pain and swelling apparently t he patient lost injected in the right arm about 4 days ago and the patient started having increasing swelling of the wrist with right arm that has progressed very quickly patient did have diffuse swelling and redness and has been complaining of pain to the right arm to be sharp and throbbing intensity almost 7-8 out of 10 no radiation he did have a fever at home of 100.9 F with these symptoms the patient presented to [facility] ER on arrival to the ER the patient was afebrile, patient did have white count of 14.6 with a left shift kidney function has been normal liver size mildly elevated patient was started on Unasyn and vancomycin blood cultures gram-positive the gram-positive cocci that has prompted this infectious disease consultation patient did have a x-rays of the forearm and humerus with no acute abnormality he did have a ultrasound that was negative for fluid collection with evidence of thrombophlebitis of the cephalic vein Review of system: CONSTITUTIONAL: Positive for weakness along with the fever. EYES: No complaint. ENT: No complaint. RESPIRATORY: No complaint. CARDIOVASCULAR: No complaint. GENITOURINARY: No complaint. GASTROINTESTINAL: No complaint. MUSCULOSKELETAL: As per history of present illness. INTEGUMENTARY: As per history of present illness. PSYCHOLOGIC: No complaint. ENDOCRINE: No complaint. NEUROLOGIC: No complaint. Past medical history : Reviewed, documented below Past surgical history : Reviewed, documented below Social history: Reviewed, documented below Medications: Reviewed, as documented below EXAMINATION: Vital sigans= Reviewed and documented below GENERAL DESCRIPTION: Middle-aged male lying in bed, no distress. No tachypnea or accessory muscle of respiration use. HEENT: Shows Pallor , no scleral icterus. Oral mucous membrane is dry. NECK: Trachea central, no thyromegaly. LUNGS: Unlabored breathing. Clear to auscultation anteriorly. No wheeze or crackle. HEART: S1, S2, regular rate and rhythm. ABDOMEN: Soft, no tenderness , guarding or rigidity EXTREMITIES: Diffuse swelling redness of the right upper extremity which is warm and tender to touch no open wound or any drainage. SKIN: No rash, no masses palpable. NEUROLOGICAL: The patient is awake, alert, oriented x3, mood and affect normal. LABS AND RADIOLOGY: Reviewed results see below Assessment : 1-patient with acute right upper extremity cellulitis from injection drug use in this patient who did have ultrasound with evidence of thrombophlebitis likely septic as the patient did have evidence of gram-positive bacteremia which has been finalized with Streptococcus agalactiae, ultrasound was negative for any abscess or fluid collection Plan: 1-discontinue Unasyn and vancomycin 2-we will start the patient cefazolin 2 g every 8 hour and clindamycin 900 every 8 hour 3-patient may benefit from vascular surgery evaluation We will follow on clinical condition and cultures to further adjust medication if needed Thank you for this consultation we will follow the patient along with you Past Medical History Past Medical History: No Reported History History of Any Multi-Drug Resistant Organisms: None Reported Past Surgical History: No Surgical Hx Reported Past Psychological History: No Psychological Hx Reported Smoking Status: Current every day smoker Past Alcohol Use History: None Reported Past Drug Use History: Heroin, Prescription Drug Abuse Medications and Allergies Home Medications Medication Instructions Recorded Confirmed Type No Known Home Medications 11/07/20 11/07/20 History Allergies Allergy/AdvReac Type Severity Reaction Status Date / Time No Known Allergies Allergy Verified 11/07/20 11:54 Physical Exam Vitals: Vital Signs Temp Pulse Resp BP Pulse Ox 11/08/20 20:39 99.0 F 88 16 92/53 96 11/08/20 19:57 98.1 F 99 17 109/74 11/08/20 16:14 98.4 F 88 17 107/66 99 11/08/20 13:32 112/64 11/08/20 12:25 97.6 F 84 14 86/50 99 11/08/20 05:26 91/53 11/08/20 05:19 81/45 11/08/20 04:32 98.9 F 84 16 85/45 96 Intake and Output 11/08/20 11/08/20 11/08/20 06:59 14:59 22:59 Intake Total 590 Balance 590 Intake: Oral 590 Other: Voiding Method Toilet Urinal # Voids 2 3 Results CBC & Chem 7: 11/08/20 05:32 11/08/20 05:32 Labs: Abnormal Lab Results - Last 24 Hours (Table) 11/07/20 11/08/20 11/08/20 Range/Units 19:03 05:32 05:32 WBC 11.8 H (3.8-10.6) k/uL Neutrophils # 9.9 H (1.3-7.7) k/uL ESR 37 H (0-15) mm/Hr Sodium 132 L (135-145) mmol/L Potassium 3.4 L (3.5-5.5) mmol/L Glucose 129 H (70-110) mg/dL Calcium 7.8 L (8.7-10.3) mg/dL Microbiology - Last 24 Hours (Table) 11/07/20 11:52 Blood Culture Gram Stain - Preliminary Blood Blood Culture - Preliminary Strep pyogenes (grp a) 11/07/20 11:52 Blood Culture - Final Blood 11/07/20 11:52 Blood Culture Gram Stain - Preliminary Blood 11/07/20 11:52 Blood Culture - Final Blood
[2020-11-08] MEDS: CLINDAMYCIN 900 MG in DEXTROSE 5% IN WATER 50 ML IVPB SCH ×2 (23:28)
[2020-11-09 07:00] LABS: African American GFR (CKD) >90 (>60 ml/min/1.73 sqM); Anion Gap 6 mmol/L; Blood Urea Nitrogen 6 mg/dL (9-20); Calcium 7.9 mg/dL (8.4-10.2); Carbon Dioxide 25 mmol/L (22-30); Chloride 102 mmol/L (98-107); Glucose 106 mg/dL (74-99); Non-African American GFR(CKD) >90 (>60 ml/min/1.73 sqM); Potassium 3.4 mmol/L (3.5-5.1); Sodium 133 mmol/L (137-145)
[2020-11-09] MEDS: KETOROLAC 15 MG/ML 1 ML VIAL IVP PRN ×2 (09:26→20:51)
[2020-11-09] MEDS: CLINDAMYCIN 900 MG in DEXTROSE 5% IN WATER 50 ML IVPB SCH ×6 (10:21→23:43)
--- NOTE | 2020-11-09 10:44 | ECHOF ---
Referral Reason:r/o endocarditits MEASUREMENTS -------- HEIGHT: 180.3 cm WEIGHT: 68.0 kg BP: RVIDd: 2.5 cm (< 3.3) IVSd: 0.8 cm (0.6 - 1.1) LVIDd: 4.2 cm (3.9 - 5.3) LVPWd: 0.9 cm (0.6 - 1.1) IVSs: 1.0 cm LVIDs: 3.1 cm LVPWs: 1.6 cm LAESV Index (A-L): 23.82 ml/m Ao Diam: 3.1 cm (2.0 - 3.7) AV Cusp: 2.2 cm (1.5 - 2.6) LA Diam: 3.0 cm (2.7 - 3.8) MV EXCURSION: 16.649 mm (> 18.000) MV EF SLOPE: 128 mm/s (70 - 150) EPSS: 0.8 cm MV E Sidney: 0.80 m/s MV DecT: 181 ms MV A Sidney: 0.54 m/s MV E/A Ratio: 1.46 RAP: 5.00 mmHg RVSP: 20.28 mmHg FINDINGS -------- This was a technically good study. The left ventricular size is normal. Left ventricular wall thickness is normal. Overall left vent ricular systolic function is normal with, an EF between 55 - 60 %. The right ventricle is normal in size. The left atrial size is normal. The right atrial size is normal. The aortic valve is trileaflet and appears structurally normal. The mitral valve is normal. Mild mitral regurgitation is present. Cannot rule out vegetation. The tricuspid valve appears structurally normal. Trace tricuspid regurgitation present. Right iraj tricular systolic pressure is normal at < 35 mmHg. Trace/mild (physiologic) pulmonic regurgitation. The aortic root size is normal. Normal inferior vena cava with normal inspiratory collapse consistent with estimated right atrial pre ssure of 5 mmHg. There is no pericardial effusion. CONCLUSIONS -------- 1. This was a technically good study. 2. The left ventricular size is normal. 3. Left ventricular wall thickness is normal. 4. Overall left ventricular systolic function is normal with, an EF between 55 - 60 %. 5. Mild mitral regurgitation is present. 6. Cannot rule out vegetation. 7. Trace tricuspid regurgitation present. 8. Trace/mild (physiologic) pulmonic regurgitation. 9. There is no pericardial effusion. [employer] DESIGNER: Leonor Greene RDCS
[2020-11-09] MEDS ORDERED: HYDROcodone/APAP 5-325MG 1 EACH TAB PO PRN (11:50)
[2020-11-09] MEDS ORDERED: POTASSIUM CHLORIDE ER 20 MEQ TAB.ER PO STA (11:52)
[2020-11-09] MEDS ORDERED: POTASSIUM CHLORIDE 20 MEQ in WATER FOR INJECTION 1 100ML.BAG IVPB STA (11:52)
--- NOTE | 2020-11-09 12:08 | P.PN ---
Subjective Patient's right arm is significantly worse today. Area of swelling is a lot bigger compared to yesterday. Erythema is about the same. More pain compared to yesterday. Objective - Vital Signs Vital signs: Vital Signs Temp 98.5 F 11/09/20 04:51 Pulse 82 11/09/20 04:51 Resp 16 11/09/20 04:51 BP 82/51 11/09/20 04:51 Pulse Ox 96 11/09/20 04:51 Intake & Output 11/08/20 11/09/20 11/09/20 18:59 06:59 18:59 Intake Total 1360 Output Total 300 Balance 1060 Intake: Intake, IV Titration 1000 Amount Clindamycin 900 mg In 50 Dextrose 5% in Water 50 ml @ 50 mls/hr IVPB Q8HR YI Rx#:[id number] Sodium Chloride 0.9% 1, 600 000 ml @ 75 mls/hr IV . [id number] YI Rx#:[id number] Vancomycin 1,250 mg In 250 Sodium Chloride 0.9% 250 ml @ 125 mls/hr IVPB Q8H YI Rx#:[id number] ceFAZolin 2 gm In Sodium 100 Chloride 0.9% 50 ml @ 100 mls/hr IVPB Q8HR YI Rx# :[id number] Oral 360 Output: Urine 300 Other: Voiding Method Toilet Toilet Toilet Urinal Urinal Urinal # Voids 3 - Exam General: The patient is awake and alert, in no distress Eye: there is normal conjunctiva bilaterally. Neck: The neck is supple, there is no JVD. Cardiovascular: Normal S1-S2, no S3-S4, no murmurs. Respiratory: Lungs clear to auscultation bilaterally Gastrointestinal: Abdomen is soft, nontender Musculoskeletal: There is no pedal edema. Neurological:. Speech is normal. Skin: Skin is warm and dry - Labs CBC & Chem 7: 11/08/20 05:32 11/09/20 06:25 Labs: Abnormal Lab Results - Last 24 Hours (Table) 11/09/20 Range/Units 06:25 Sodium 133 L (137-145) mmol/L Potassium 3.4 L (3.5-5.1) mmol/L BUN 6 L (9-20) mg/dL Creatinine 0.57 L (0.66-1.25) mg/dL Glucose 106 H (74-99) mg/dL Calcium 7.9 L (8.4-10.2) mg/dL Microbiology - Last 24 Hours (Table) 11/07/20 11:52 Blood Culture Gram Stain - Preliminary Blood Blood Culture - Preliminary Strep pyogenes (grp a) Assessment and Plan Assessment: This is a 29-year-old male with past medical history of IV heroin use who presented to the emergency room with worsening right arm pain, swelling, and redness. Patient was evaluated in the ER and admitted for further management of his medical problems noted below. 1. Sepsis without septic shock 2. Right arm cellulitis with no evidence of abscess formation on ultrasound 3. Group A strep bacteremia awaiting repeat blood culture. 2-D echocardiogram was inconclusive about ruling out vegetations. I would consult cardiology for possible SABINA. 4. Thrombophlebitis of the cephalic vein in the right arm 5. Hypovolemic hyponatremia, improved with IV fluid hydration 6. IV heroin abuse, counseled extensively to quit 7. Hypokalemia, replacement ordered Today, I reviewed his medication list and lab work results. Given significant worsening of the right arm swelling I would obtain a computed tomography scan with IV contrast for further evaluation and consult vascular surgery. Continue on elevation and intermittent icing. Patient started on broad-spectrum antibiotic with IV vancomycin and Unasyn. Antibiotic adjusted to cefazolin and clindamycin by infectious disease. Continue supportive care otherwise. Patient was counseled extensively about the importance of stopping using drugs.
--- NOTE | 2020-11-09 13:53 | CT ---
EXAMINATION TYPE: CT upper extremity RT w con DATE OF EXAM: 11/09/2020 COMPARISON: None HISTORY: Right arm swelling and redness. History of IV drug abuse. CT DLP: 997.9 mGycm Automated exposure control for dose reduction was used. CONTRAST: Performed with IV Contrast, patient injected with 100ml mL of Isovue 300. FINDINGS: There is diffuse soft tissue edema. There likely is superficial venous thrombosis. Fullness in the mu sculature is noted. No definable abscess cavity. Skin thickening is noted. Correlate for a cellulitis or soft tissue edema. No osseous destruction. On the medial aspect of the mid upper extremity there are some small soft tis sunita nodules measuring less than centimeter which may represent small lymph nodes. Adenopathy within t he right axilla also noted. Trace amount of ascites noted adjacent to the liver which is only partial ly included on the exam. IMPRESSION: 1. Diffuse soft tissue edema with some fullness to the musculature. Correlate for cellulitis or soft tissue edema. If there is concern for fasciitis then correlate with MRI. 2. No definable abscess. 3. Findings suspicious for superficial venous thrombosis.
--- NOTE | 2020-11-09 14:21 | CONS ---
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 He came with swelling of the right arm and this pain and swelling is going on for the last few days and getting worse. He had an episode of fever and chills at home. PAST MEDICAL HISTORY: No history of diabetes, hypertension. SURGICAL HISTORY: No past history of any surgery. PERSONAL HISTORY: Patient has been using heroin and prescription drug abuse. PHYSICAL EXAMINATION: On examination his temperature is 98.5. NECK is supple. Trachea central. CHEST: Clear to auscultation. ABDOMEN is soft right arm. The brachial radial pulses are present. Patient has a swelling and tenderness of the right upper arm. According to the patient, he has been injecting heroin in his vein using cephalic vein and also this time he is not sure he injected into his subcu tissue or into the vein. The patient had a ultrasound. Ultrasound showed there is no edema and no fluid collection noted and also there is a thrombosed cephalic vein without any flow noted. IMPRESSION: Thrombophlebitis of the cephalic vein. No evidence of fluid collection noted. The patient is on IV antibiotic under the care of Infectious Disease. PLAN: We will do the CTA of the upper arm to rule out any deep abscess and also we will repeat the ultrasound of the arm checking for cephalic vein, basilic vein and brachial vein. Follow with you. Thank you for this consultation. MMODL / IJN: [id number] /
[2020-11-09] MEDS: SODIUM CHLORIDE 0.9% 1,000 ML IV SCH (14:32)
[2020-11-09] MEDS: MORPHINE SULFATE 2 MG/ML SYRINGE IVP PRN ×2 (15:06→21:28)
[2020-11-09 16:14] LABS: C Reactive Protein 5.6 mg/dL (<1.0)
--- NOTE | 2020-11-09 17:11 | US ---
EXAMINATION TYPE: US venous doppler duplex UE RT DATE OF EXAM: 11/09/2020 COMPARISON: US & CT CLINICAL HISTORY: 29-year-old male Check for abscess right arm. . Right arm redness and swelling. TECHNIQUE: Grayscale, color doppler, spectral doppler imaging performed of the deep veins of the upp er extremities. SIDE PERFORMED: Right FINDINGS: Incidental note is made of enlarged lymph node in axilla. Generalized subcutaneous edema. Right Arm: The Cephalic vein is thrombosed without flow, and non compressible in the upper arm. Otherwise, the exam is negative for DVT IMPRESSION: SVT of the cephalic vein in the upper arm. Otherwise, no evidence for DVT in the right upper extremit y. Generalized soft tissue swelling could reflect cellulitis. A prominent axillary lymph node is likely reactive.
--- NOTE | 2020-11-09 17:27 | PN ---
PROGRESS NOTE DATE OF SERVICE: 11/09/2020 REASON FOR FOLLOWUP: Right upper extremity cellulitis with thrombophlebitis. INTERVAL HISTORY: The patient is afebrile. The patient is breathing comfortably. The patient is complaining of more pain to the right upper extremity. No chest pain, shortness of breath or cough. No abdominal pain or diarrhea. PHYSICAL EXAMINATION: Blood pressure 115/68 with a pulse of 76, temperature 97.8. He is 97% on room air. GENERAL DESCRIPTION: General description is a middle-aged male lying in bed in no distress. RESPIRATORY SYSTEM: Unlabored breathing. Clear to auscultation anteriorly. HEART: S1, S2. Regular rate and rhythm. ABDOMEN: Soft. No tenderness. Right upper extremity swelling and redness has slightly decreased and the area is not as dense. Slightly tender to touch. LABS: BUN of 6, creatinine 0.57. Blood culture with Streptococcus agalactiae. Blood cultures repeat so far negative. DIAGNOSTIC IMPRESSION AND PLAN: Patient with right upper extremity cellulitis from injection drug use with evidence of a superficial thrombophlebitis, septic. The patient is complaining of more pain; hence a CT was done. It did not show any evidence of fasciitis. Recommending an MRI. Case was discussed with the vascular surgeon, who recommends possible transfer to tertiary care. Patient to continue with cefazolin and clindamycin; to continue until the patient is transferred. Continue supportive care. MMODL / IJN: [id number] /
--- NOTE | 2020-11-09 19:23 | P.PN ---
Progress Note - Text Progress Note Date: 11/09/20 evaluated patient , patient is Concerned that patient might have used IV heroin. Patient has been intermittently hypotensive during the day. Currently blood pressure and oxygenation are stable. Patient denies use of her one today. He admits that he had visitors including some of his friends. We will continue to monitor. We will hold patient's belongings for now for his own safety.
[2020-11-10] MEDS: MORPHINE SULFATE 2 MG/ML SYRINGE IVP PRN ×4 (02:37→20:37)
[2020-11-10] MEDS: SODIUM CHLORIDE 0.9% 1,000 ML IV SCH ×2 (02:40→16:03)
[2020-11-10] MEDS: KETOROLAC 15 MG/ML 1 ML VIAL IVP PRN (05:26)
[2020-11-10] MEDS: CLINDAMYCIN 900 MG in DEXTROSE 5% IN WATER 50 ML IVPB SCH ×4 (09:06→16:38)
[2020-11-10 10:36] LABS: African American GFR (CKD) 155.3 (60.0-200.0); Anion Gap 7.2 mmol/L (4.00-12.00); BUN/Creat Ratio 8.33 Ratio (12.00-20.00); Calcium 7.8 mg/dL (8.7-10.3); Carbon Dioxide 27.8 mmol/L (21.6-31.8); Magnesium 1.9 mg/dL (1.5-2.4); Potassium 3.7 mmol/L (3.5-5.5)
[2020-11-10] MEDS ORDERED: LORazepam 2 MG/ML INJ IV STA (11:20)
--- NOTE | 2020-11-10 12:56 | P.PN ---
Subjective Suspicion that patient was snorting cocaine his room yesterday. He is scheduled for MRI this morning for further evaluation. Of his right arm. Objective - Vital Signs Vital signs: Vital Signs Temp 98.7 F 11/10/20 05:00 Pulse 80 11/10/20 05:00 Resp 18 11/10/20 05:00 BP 95/59 11/10/20 05:00 Pulse Ox 96 11/10/20 05:00 Intake & Output 11/09/20 11/10/20 11/10/20 18:59 06:59 18:59 Intake Total 500 Balance 500 Intake: Oral 500 Other: Voiding Method Toilet Urinal # Voids 3 2 - Exam General: The patient is awake and alert, in no distress Eye: there is normal conjunctiva bilaterally. Neck: The neck is supple, there is no JVD. Cardiovascular: Normal S1-S2, no S3-S4, no murmurs. Respiratory: Lungs clear to auscultation bilaterally Gastrointestinal: Abdomen is soft, nontender Musculoskeletal: There is no pedal edema. Neurological:. Speech is normal. Skin: Skin is warm and dry - Labs CBC & Chem 7: 11/08/20 05:32 11/10/20 05:17 Labs: Abnormal Lab Results - Last 24 Hours (Table) 11/09/20 11/10/20 Range/Units 06:25 05:17 BUN 5.0 L (9.0-27.0) mg/dL BUN/Creatinine Ratio 8.33 L (12.00-20.00) Ratio Calcium 7.8 L (8.7-10.3) mg/dL Creatine Kinase 37 L (55-170) U/L C-Reactive Protein 5.6 H (<1.0) mg/dL Microbiology - Last 24 Hours (Table) 11/08/20 10:10 Blood Culture - Preliminary Blood No Growth after 48 hours 11/07/20 11:52 Blood Culture Gram Stain - Preliminary Blood Blood Culture - Preliminary Strep pyogenes (grp a) Assessment and Plan Assessment: This is a 29-year-old male with past medical history of IV heroin use who pr esented to the emergency room with worsening right arm pain, swelling, and redness. Patient was evaluated in the ER and admitted for further management of his medical problems noted below. 1. Sepsis without septic shock 2. Right arm cellulitis with no evidence of abscess formation on ultrasound. Patient was seen and evaluated by vascular surgery and infectious disease. Computed tomography scan reviewed an MRI ordered for further evaluation 3. Group A strep bacteremia awaiting repeat blood culture. 2-D echocardiogram was inconclusive about ruling out vegetations. I would consult cardiology for possible SABINA. 4. Thrombophlebitis of the cephalic vein in the right arm 5. Hypovolemic hyponatremia, improved with IV fluid hydration 6. IV heroin abuse, counseled extensively to quit 7. Hypokalemia, replacement ordered Today, I reviewed his medication list and lab work results. Continue on elevation and intermittent icing. Patient started on broad-spectrum antibiotic with IV vancomycin and Unasyn. Antibiotic adjusted to cefazolin and clindamycin by infectious disease. Contin ue supportive care otherwise.
--- NOTE | 2020-11-10 13:11 | MR ---
EXAMINATION TYPE: MR humerus RT w/wo con DATE OF EXAM: 11/10/2020 COMPARISON: CT right upper extremity from yesterday. HISTORY: Rule out deep fasciitis right humerus. Pain and swelling. History of IV drug use. CONTRAST: Standard multiplanar, multisequence MRI departmental protocol images were obtained without contrast a nd with 7 mL intravenous Gadavist gadolinium contrast. FINDINGS: Exam is suboptimal as patient unable to hold still. There is diffuse subcutaneous edema isela ng the medial aspect of the left humerus beginning mid shaft level with extension inferiorly. No well -formed thick-walled fluid collection or abscess identified. Medial muscles show mild edematous shen e for reference axial image 35 and some heterogeneous enhancement suspected best seen when comparing coronal pre and postcontrast images. IMPRESSION: Confirmation of soft tissue infection or acute cellulitis with intramuscular involvement as detailed above. No well-formed thick-walled fluid collection or abscess.
--- NOTE | 2020-11-10 14:28 | P.CRDCN ---
History of Present Illness Consult date: 11/10/20 Requesting physician: Miles Bennett Reason for Consult (text): SABINA? Chief complaint: Right upper extremity infection History of present illness: This is a 29-year-old gentleman with history of IV drug abuse. He's been struggling with drug addiction for the last 8 years. Apparently 2 weeks prior to admission he relapsed on heroin. He presented to the emergency department on the morning of November 07 about 3-4 days after heroin injection into the right arm with a fever, pain in his right arm and swelling. Ultrasound of the extremity showed findings consistent with thrombophlebitis of the cephalic vein. Computed tomography scan of the upper extremity showed diffuse soft tissue luis fernando ma with some fullness to the signature, correlate for cellulitis or soft tissue edema. There is concern for fasciitis in correlate with MRI, no definable abscess, findings suspicious for superficial venous thrombosis. Echocardiogram was done and we were asked to the patient in consultation due to concern for vegetation of the mitral valve. Vital signs are reviewed he's been afebrile. Has been having some episodes of tachycardia, sinus mechanism and also some episodes of hypotension. In reviewing the notes from other providers there was a concern for heroine use while he was here. He is being followed by infectious disease and currently on IV cefazolin as well as IV clindamycin. Laboratory evaluation White blood cell count of 11,800, BUN of 5, creatinine 0.6. Cultures were positive for gram-positive cocci in chains with a Gram stain showing positive for strep pyogenes. Upon examination he is resting comfortably in bed, somewhat drowsy. Complains of discomfort in his right arm which is quite swollen and reddened. Denies any shortness of breath, chest discomfort, palpitations, dizziness or lightheadedness. He denies any nausea or vomiting since admission. Past Medical History Past Medical History: No Reported History History of Any Multi-Drug Resistant Organisms: None Reported Past Surgical History: No Surgical Hx Reported Past Psychological History: No Psychological Hx Reported Smoking Status: Current every day smoker Past Alcohol Use History: None Reported Past Drug Use History: Heroin, Prescription Drug Abuse Medications and Allergies Home Medications Medication Instructions Recorded Confirmed Type No Known Home Medications 11/07/20 11/07/20 History Allergies Allergy/AdvReac Type Severity Reaction Status Date / Time No Known Allergies Allergy Verified 11/07/20 11:54 Physical Exam Vitals: Vital Signs Temp Pulse Resp BP Pulse Ox 11/10/20 12:56 97.9 F 75 18 114/71 97 11/10/20 05:00 98.7 F 80 18 95/59 96 11/09/20 19:15 89 15 110/72 97 11/09/20 18:55 101 H 12 101/68 82 L Intake and Output 11/09/20 11/10/20 11/10/20 22:59 06:59 14:59 Intake Total 500 Balance 500 Intake: Oral 500 Other: Voiding Method Toilet # Voids 3 2 PHYSICAL EXAMINATION: This is a 29-year-old male in no apparent distress at the time of my examination. VITAL SIGNS: Blood pressure 114/71, heart rate 75, respirations 18, temp 97.9F axillary. Patient is 97 % on room air. HEENT: Head is atraumatic, normocephalic. Pupils are equal, round. Sclerae anic teric. Conjunctivae are clear. Mucous membranes of the mouth are moist. Neck is supple. There is no elevated jugular venous pressure. No carotid bruit is heard. CHEST EXAMINATION: Clear to auscultation bilaterally. No wheezes rales or rhonchi. Respirations even and nonlabored. HEART EXAMINATION: Heart regular, positive S1 and S2. No S3. No S4. ABDOMEN: Soft, nontender. Bowel sounds are heard. No organomegaly noted. EXTREMITIES: 2+ peripheral pulses with no evidence of lower extremity edema and no calf tenderness noted. Right arm with edema and erythema consistent with cellulitis. NEUROLOGIC EXAMINATION: Patient is awake, drowsy and oriented x3. Results 11/08/20 05:32 11/10/20 05:17 Comprehensive Metabolic Panel 11/10/20 Range/Units 05:17 Sodium 138 (135-145) mmol/L Potassium 3.7 (3.5-5.5) mmol/L Chloride 103 (96-109) mmol/L Carbon Dioxide 27.8 (21.6-31.8) mmol/L BUN 5.0 L (9.0-27.0) mg/dL Creatinine 0.6 (0.6-1.5) mg/dL Glucose 101 (70-110) mg/dL Calcium 7.8 L (8.7-10.3) mg/dL Current Medications Generic Name Dose Route Start Last Admin Trade Name Freq PRN Reason Stop Dose Admin Acetaminophen 650 mg 11/07/20 13:03 11/08/20 05:29 Acetaminophen Tab 325 Mg Tab PO 650 mg Q6HR PRN Administration Mild Pain or Fever > 100.5 Cefazolin Sodium 2 gm/ Sodium 50 mls @ 100 mls/hr 11/09/20 00:00 11/10/20 08:24 Chloride IVPB 100 mls/hr Q8HR YI Administration Clindamycin Phosphate 900 mg/ 56 mls @ 50 mls/hr 11/09/20 00:00 11/10/20 09:06 Dextrose/Water IVPB 50 mls/hr Q8HR YI Administration Sodium Chloride 1,000 mls @ 75 mls/hr 11/09/20 12:00 11/10/20 02:40 Saline 0.9% IV 75 mls/hr .[id number] YI Administration Morphine Sulfate 2 mg 11/09/20 11:50 11/10/20 09:07 Morphine Sulfate 2 Mg/Ml Syringe IVP 2 mg Q4H PRN Administration Pain/Discomfort Naloxone HCl 0.2 mg 11/07/20 13:03 Naloxone 0.4 Mg/Ml 1 Ml Vial IV Q2M PRN Opioid Reversal Ondansetron HCl 4 mg 11/07/20 13:03 Ondansetron 4 Mg/2 Ml Vial IVP Q8HR PRN Nausea And Vomiting Intake and Output 11/09/20 11/10/20 11/10/20 22:59 06:59 14:59 Intake Total 500 Balance 500 Intake: Oral 500 Other: Voiding Method Toilet # Voids 3 2 11/08/20 05:32 11/10/20 05:17 Assessment and Plan Assessment: #1 right arm cellulitis #2 sepsis #3 group a strep bacteremia #4 possibility of vegetation on mitral valve, 2-D echocardiogram could not rule out #5 thrombophlebitis of the cephalic vein in the right arm #6 IV heroin abuse Plan: From cardiology's perspective, we will keep the patient nothing by mouth after midnight on Thursday night in preparation for SABINA to evaluate mitral valve on Thursday. I discussed with the patient the procedure as well as the rationale. He is in agreement. Discussed in detail with the patient the importance of abstaining from drug use in the future. Further recommendations to follow. [employer] note has been reviewed, I agree with a documented findings and plan of care. Patient was seen and examined.
--- NOTE | 2020-11-10 14:44 | PN ---
PROGRESS NOTE This is a 29-year-old gentleman who has been admitted to the hospital with a history of heroin abuse. He presented to the hospital with pain and swelling of the left arm. The patient had a venous ultrasound of the arm that shows patient has a thrombosis of the cephalic vein. Basilic vein, brachial vein, axillary vein is patent. No clot seen. The patient also had a CT of the upper arm which showed no abscess formation. The patient had a MRI of the arm that shows no thick wall, fluid or abscess seen. Patient has acute cellulitis. On examination, his brachial and radial pulses are present and pulses present. Patient has normal motor function. He can make a fist, but patient has some discomfort and pain on the cubital fossa and the upper arm is softer than yesterday. The patient is on IV antibiotic under the care of Infectious Disease. We will discuss with Infectious Disease and Internal Medicine. Discussed with the patient. We will keep the arm elevated on 2 pillows and IV antibiotic. MMODL / IJN: [id number] /
[2020-11-11] MEDS: CLINDAMYCIN 900 MG in DEXTROSE 5% IN WATER 50 ML IVPB SCH ×2 (00:27)
[2020-11-11] MEDS: MORPHINE SULFATE 2 MG/ML SYRINGE IVP PRN ×5 (01:49→23:00)
[2020-11-11] MEDS: SODIUM CHLORIDE 0.9% 1,000 ML IV SCH (05:26)
[2020-11-11 06:38] LABS: Basophils # (A) 0.1 k/uL (0-0.2); Basophils % (A) 1 %; Eosinophils # (A) 0.1 k/uL (0-0.7); Eosinophils % (A) 1 %; HCT 37.9 % (39.0-53.0); HGB 12.7 gm/dL (13.0-17.5); Lymphocytes # (A) 4.1 k/uL (1.0-4.8); Lymphocytes % (A) 32 %; MCH 31.2 pg (25.0-35.0); MCHC 33.4 g/dL (31.0-37.0); MCV 93.6 fL (80.0-100.0); Mean Platelet Volume 8.1; Monocytes # (A) 0.7 k/uL (0-1.0); Monocytes % (A) 5 %; Neutrophils # (A) 7.3 k/uL (1.3-7.7); Neutrophils % (A) 57 %; Platelet Count 308 k/uL (150-450); RBC 4.05 m/uL (4.30-5.90); RDW 12.5 % (11.5-15.5)
--- NOTE | 2020-11-11 07:21 | PN ---
PROGRESS NOTE DATE OF SERVICE: 11/10/2020 REASON FOR FOLLOWUP: Right upper extremity cellulitis secondary to Streptococcus pyogenes and Streptococcus bacteremia. INTERVAL HISTORY: Patient is afebrile, has been breathing comfortably. Still has significant pain right upper extremity. No chest pain, shortness of breath or cough. No abdominal pain or diarrhea. PHYSICAL EXAMINATION: Blood pressure 123/54 with a pulse of 91, temperature 99.6. He is 97% on room air. General description is a middle-aged male lying in bed in no distress. Respiratory system: Unlabored breathing. Clear to auscultation anteriorly. Heart S1, S2. Regular rate and rhythm. Abdomen soft, no tenderness. The right upper extremity is swollen and red. No worsening though. LABS: BUN of 5, creatinine 0.6. DIAGNOSTIC IMPRESSION AND PLAN: Patient with right upper extremity cellulitis, IV drug use related with evidence of thrombophlebitis. No evidence of any abscess. Patient is covered with Clindamycin and to continue. Blood culture has been negative so far. Continue supportive care. MMODL / IJN: [id number] /
[2020-11-11] MEDS: ENOXAPARIN 40 MG/0.4 ML SYRINGE SQ SCH (08:08)
[2020-11-11 09:46] LABS: African American GFR (CKD) 155.3 (60.0-200.0); Blood Urea Nitrogen <5.0 mg/dL (9.0-27.0); Calcium 7.8 mg/dL (8.7-10.3); Carbon Dioxide 26.2 mmol/L (21.6-31.8); Chloride 107 mmol/L (96-109); Glucose 97 mg/dL (70-110); Potassium 3.8 mmol/L (3.5-5.5); Sodium 139 mmol/L (135-145)
--- NOTE | 2020-11-11 11:30 | P.PN ---
Subjective Patient is doing well today. No acute events overnight. Objective - Vital Signs Vital signs: Vital Signs Temp 98.2 F 11/11/20 04:38 Pulse 80 11/11/20 04:38 Resp 18 11/11/20 04:38 BP 114/68 11/11/20 04:38 Pulse Ox 100 11/11/20 04:38 Intake & Output 11/10/20 11/11/20 11/11/20 18:59 06:59 18:59 Intake Total 900 3250 Balance 900 3250 Intake: Intake, IV Titration 900 950 Amount Sodium Chloride 0.9% 1, 900 900 000 ml @ 75 mls/hr IV . [id number] YI Rx#:[id number] ceFAZolin 2 gm In Sodium 50 Chloride 0.9% 50 ml @ 100 mls/hr IVPB Q8HR YI Rx# :[id number] Oral 2300 Other: Voiding Method Toilet Toilet # Voids 2 2 - Exam General: The patient is awake and alert, in no distress Eye: there is normal conjunctiva bilaterally. Neck: The neck is supple, there is no JVD. Cardiovascular: Normal S1-S2, no S3-S4, no murmurs. Respiratory: Lungs clear to auscultation bilaterally Gastrointestinal: Abdomen is soft, nontender Musculoskeletal: There is no pedal edema. Neurological:. Speech is normal. Skin: Skin is warm and dry - Labs CBC & Chem 7: 11/11/20 05:59 11/11/20 05:59 Labs: Abnormal Lab Results - Last 24 Hours (Table) 11/11/20 11/11/20 Range/Units 05:59 05:59 WBC 13.0 H (3.8-10.6) k/uL RBC 4.05 L (4.30-5.90) m/uL Hgb 12.7 L (13.0-17.5) gm/dL Hct 37.9 L (39.0-53.0) % BUN <5.0 L (9.0-27.0) mg/dL Calcium 7.8 L (8.7-10.3) mg/dL Microbiology - Last 24 Hours (Table) 11/07/20 11:52 Blood Culture Gram Stain - Final Blood Blood Culture - Final Strep pyogenes (grp a) 11/07/20 11:52 Blood Culture Gram Stain - Final Blood Blood Culture - Final Strep pyogenes (grp a) 11/08/20 10:10 Blood Culture - Preliminary Blood No Growth after 48 hours Assessment and Plan Assessment: This is a 29-year-old male with past medical history of IV heroin use who presented to the emergency room with worsening right arm pain, swelling, and redness. Patient was evaluated in the ER and admitted for further management of his medical problems noted below. 1. Sepsis without septic shock 2. Right arm cellulitis with no evidence of abscess formation on ultrasound. Patient was seen and evaluated by vascular surgery and infectious disease. Computed tomography scan and MRI showed evidence of cellulitis and soft tissue swelling without concerns about the fasciitis 3. Group A strep bacteremia: Repeat blood cultures negative to date. 2-D echocardiogram was inconclusive about ruling out vegetations. SABINA on Thursday 4. Thrombophlebitis of the cephalic vein in the right arm 5. Hypovolemic hyponatremia, improved with IV fluid hydration 6. IV heroin abuse, counseled extensively to quit 7. Hypokalemia, replacement ordered Today, I reviewed his medication list and lab work results. Continue on elevation and intermittent icing. Patient started on broad-spectrum antibiotic with IV vancomycin and Unasyn. Antibiotic adjusted to cefazolin and clindamycin by infectious disease. Continue supportive care otherwise.
--- NOTE | 2020-11-11 13:59 | P.PN ---
Subjective Progress Note Date: 11/11/20 This is a 29-year-old gentleman with history of IV drug abuse. He's been struggling with drug addiction for the last 8 years. Apparently 2 weeks prior to admission he relapsed on heroin. He presented to the emergency department on the morning of November 07 about 3-4 days after heroin injection into the right arm with a fever, pain in his right arm and swelling. Ultrasound of the extremity showed findings consistent with thrombophlebitis of the cephalic vein. Computed tomography scan of the upper extremity showed diffuse soft tissue edema with some fullness to the signature, correlate for cellulitis or soft tissue edema. There is concern for fasciitis in correlate with MRI, no definable abscess, findings suspicious for superficial venous thrombosis. Echocardiogram was done and we were asked to the patient in consultation due to concern for vegetation of the mitral valve. Vital signs are reviewed he's been afebrile. Has been having some episodes of tachycardia, sinus mechanism and als o some episodes of hypotension. In reviewing the notes from other providers there was a concern for heroine use while he was here. He is being followed by infectious disease and currently on IV cefazolin as well as IV clindamycin. Laboratory evaluation White blood cell count of 11,800, BUN of 5, creatinine 0.6. Cultures were positive for gram-positive cocci in chains with a Gram stain showing positive for strep pyogenes. Upon examination he is resting comfortably in bed, somewhat drowsy. Complains of discomfort in his right arm which is quite swollen and reddened. Denies any shortness of breath, chest discomfort, palpitations, dizziness or lightheadedness. He denies any nausea or vomiting since admission. 11/11/2020 She was seen and examined resting comfortably in bed. Continues to complain of pain in his right arm. Arm remains edematous with erythema. Planning for SABINA to evaluate mitral valve tomorrow morning. Objective - Vital Signs Vital signs: Vital Signs Temp 98.2 F 11/11/20 11:15 Pulse 82 11/11/20 11:15 Resp 20 11/11/20 11:15 BP 125/79 11/11/20 11:15 Pulse Ox 99 11/11/20 11:15 Intake & Output 11/10/20 11/11/20 11/11/20 18:59 06:59 18:59 Intake Total 900 3250 Balance 900 3250 Intake: Intake, IV Titration 900 950 Amount Sodium Chloride 0.9% 1, 900 900 000 ml @ 75 mls/hr IV . [id number] [facility] Rx#:[id number] ceFAZolin 2 gm In Sodium 50 Chloride 0.9% 50 ml @ 100 mls/hr IVPB Q8HR [facility] Rx# :[id number] Oral 2300 Other: Voiding Method Toilet Toilet # Voids 2 2 - Exam Physical examination: HEENT: Head is atraumatic, normocephalic. Pupils are equal, round. Sclerae anicteric. Conjunctivae are clear. Mucous membranes of the mouth are moist. Neck is supple. There is no elevated jugular venous pressure. No carotid bruit is heard. CHEST EXAMINATION: Clear to auscultation bilaterally. No wheezes rales or rhonchi. Respirations even and nonlabored. HEART EXAMINATION: Heart regular, positive S1 and S2. No S3. No S4. ABDOMEN: Soft, nontender. Bowel sounds are heard. No organomegaly noted. EXTREMITIES: 2+ peripheral pulses with no evidence of lower extremity edema and no calf tenderness noted. Right arm with edema and erythema consistent with cellulitis. NEUROLOGIC EXAMINATION: Patient is awake, drowsy and oriented x3. - Labs CBC & Chem 7: 11/11/20 05:59 11/11/20 05:59 Labs: Abnormal Lab Results - Last 24 Hours (Table) 11/11/20 11/11/20 Range/Units 05:59 05:59 WBC 13.0 H (3.8-10.6) k/uL RBC 4.05 L (4.30-5.90) m/uL Hgb 12.7 L (13.0-17.5) gm/dL Hct 37.9 L (39.0-53.0) % BUN <5.0 L (9.0-27.0) mg/dL Calcium 7.8 L (8.7-10.3) mg/dL Microbiology - Last 24 Hours (Table) 11/08/20 10:10 Blood Culture - Preliminary Blood No Growth after 72 hours 11/07/20 11:52 Blood Culture Gram Stain - Final Blood Blood Culture - Final Strep pyogenes (grp a) 11/07/20 11:52 Blood Culture Gram Stain - Final Blood Blood Culture - Final Strep pyogenes (grp a) Assessment and Plan Assessment: #1 right arm cellulitis #2 sepsis #3 group a strep bacteremia #4 possibility of vegetation on mitral valve, 2-D echocardiogram could not rule out #5 thrombophlebitis of the cephalic vein in the right arm #6 IV heroin abuse Plan: From cardiology's perspective, we will keep the patient nothing by mouth after midnight tonight in preparation for SABINA to evaluate mitral valve tomorrow. I discussed with the patient the procedure as well as the risks and rationale. He is in agreement. Discussed in detail with the patient the importance of abstaining from drug use in the future. Further recommendations to follow. [employer] note has been reviewed, I agree with a documented findings and plan of care. Patient was seen and examined.
--- NOTE | 2020-11-11 17:15 | PN ---
PROGRESS NOTE DATE OF SERVICE: 11/11/2020 REASON FOR FOLLOWUP: Right upper extremity cellulitis Streptococcus pyogenes. INTERVAL HISTORY: The patient is afebrile. He is breathing comfortably. Pain and discomfort to the right arm are slightly decreased. No chest pain, shortness of breath or cough. No abdominal pain or diarrhea. PHYSICAL EXAMINATION: Blood pressure 125/79 with a pulse of 82, temperature 98.2. He is 99% on room air. GENERAL DESCRIPTION: General description is a middle-aged male lying in bed in no distress. RESPIRATORY SYSTEM: Unlabored breathing. Clear to auscultation anteriorly. HEART: S1, S2. Regular rate and rhythm. ABDOMEN: Soft. No tenderness. Right arm swelling and redness has slightly decreased. LABS: Hemoglobin is 12.3, white count 13,000. BUN of 5, creatinine 0.6. DIAGNOSTIC IMPRESSION AND PLAN: Patient with right upper extremity cellulitis secondary to IV drug use, culture positive for Streptococcus pyogenes. Patient is covered with cefazolin 2 grams q.8; to continue. Clindamycin was discontinued because of resistance. Monitor his clinical course closely. MMODL / IJN: [id number] /
[2020-11-12] MEDS: MORPHINE SULFATE 2 MG/ML SYRINGE IVP PRN ×3 (02:59→12:05)
[2020-11-12] MEDS ORDERED: fentaNYL (PF) 50 MCG/ML 2 ML AMP ONE (06:39)
[2020-11-12] MEDS ORDERED: SODIUM CHLORIDE 0.9% 250 ML IV ONE (07:00)
[2020-11-12] MEDS ORDERED: BENZOCAINE SPRAY 1 CAN MUCOUS MEM ONE (07:13)
[2020-11-12] MEDS ORDERED: MIDAZOLAM 2 MG/2 ML VIAL IV ONE ×2 (07:14→07:16)
[2020-11-12] MEDS ORDERED: fentaNYL (PF) 50 MCG/ML 2 ML AMP IV ONE (07:15)
[2020-11-12] MEDS: ENOXAPARIN 40 MG/0.4 ML SYRINGE SQ SCH (07:56)
[2020-11-12] MEDS: SODIUM CHLORIDE 0.9% 1,000 ML IV SCH (08:04)
--- NOTE | 2020-11-12 10:17 | ECHOT ---
TRANSESOPHAGEAL ECHOCARDIOGRAM INDICATION: Rule out endocarditis. PROCEDURE DESCRIPTION: After explaining the procedure to the patient, its risks and complications, his blood pressure, heart rate, O2 saturation were monitored. The throat was sprayed with Cetacaine. He received 3 mg intravenous Versed, 50 mcg intravenous fentanyl. The probe was introduced into the esophagus without difficulty. Images were obtained. Following that, the probe was removed. There was no immediate complication. FINDINGS: Left atrial size is normal. Right atrial size is normal. Left ventricular size and systolic function are normal. The aortic valve, mitral valve and tricuspid valve are normal. No pericardial effusion was noted. Descending thoracic aorta appears to be normal. Contrast bubble study revealed no shunting across the interatrial septum. Doppler pulse wave and color Doppler were obtained and revealed mild mitral and tricuspid regurgitation. There was no shunting by color Doppler study. CONCLUSION: 1. Normal left ventricular size and systolic function. 2. Normal left atrial appendage. 3. No evidence of vegetation. 4. Mild mitral and tricuspid regurgitation. 5. There was technical difficulty with the probe, with inability to rotate the probe, but adequate images of the valve were obtained. MMODL / IJN: [id number] /
--- NOTE | 2020-11-12 13:40 | P.PN ---
Subjective Progress Note Date: 11/12/20 No acute events overnight. Right arm swelling is improving compared to yesterday. Objective - Vital Signs Vital signs: Vital Signs Temp 98.8 F 11/12/20 11:40 Pulse 73 11/12/20 11:40 Resp 20 11/12/20 11:40 BP 138/66 11/12/20 12:06 Pulse Ox 98 11/12/20 11:40 Intake & Output 11/11/20 11/12/20 11/12/20 18:59 06:59 18:59 Intake Total 900 1590 50 Balance 900 1590 50 Intake: IV 50 Intake, IV Titration 900 Amount Sodium Chloride 0.9% 1, 900 000 ml @ 75 mls/hr IV . [id number] [facility] Rx#:[id number] Oral 1590 Other: Voiding Method Toilet Toilet Toilet # Voids 2 - Exam General: The patient is awake and alert, in no distress Eye: there is normal conjunctiva bilaterally. Neck: The neck is supple, there is no JVD. Cardiovascular: Normal S1-S2, no S3-S4, no murmurs. Respiratory: Lungs clear to auscultation bilaterally Gastrointestinal: Abdomen is soft, nontender Musculoskeletal: There is no pedal edema. Neurological:. Speech is normal. Skin: Skin is warm and dry - Labs CBC & Chem 7: 11/11/20 05:59 11/11/20 05:59 Labs: Microbiology - Last 24 Hours (Table) 11/08/20 10:10 Blood Culture - Preliminary Blood No Growth after 96 hours Assessment and Plan Assessment: This is a 29-year-old male with past medical history of IV heroin use who pre sented to the emergency room with worsening right arm pain, swelling, and redness. Patient was evaluated in the ER and admitted for further management of his medical problems noted below. 1. Sepsis without septic shock 2. Right arm cellulitis with no evidence of abscess formation on ultrasound. Patient was seen and evaluated by vascular surgery and infectious disease. Computed tomography scan and MRI showed evidence of cellulitis and soft tissue swelling without concerns about deep fasciitis 3. Group A strep bacteremia: Repeat blood cultures negative to date. 2-D echocardiogram was inconclusive about ruling out vegetations. SABINA showed no evidence of vegetation 4. Thrombophlebitis of the cephalic vein in the right arm 5. Hypovolemic hyponatremia, improved with IV fluid hydration 6. IV heroin abuse, counseled extensively to quit 7. Hypokalemia, replacement ordered Today, I reviewed his medication list and lab work results. Continue on elevation and intermittent icing. Patient started on broad-spectrum antibiotic with IV vancomycin and Unasyn. Antibiotic adjusted to cefazolin and clindamycin by infectious disease. Continue supportive care otherwise. Discussed with case management discharge planning as patient would require to go to a facility to finish course of IV antibiotic probably for a total of 14 days since negative blood culture awaiting final recommendations by infectious disease.
[2020-11-12] MEDS: HYDROcodone/APAP 5-325MG 1 EACH TAB PO PRN ×2 (15:24→19:28)
--- NOTE | 2020-11-12 17:47 | PN ---
PROGRESS NOTE DATE OF SERVICE: 11/12/2020 REASON FOR FOLLOWUP: Right arm cellulitis with streptococcal bacteremia from IV drug use. INTERVAL HISTORY: The patient is afebrile. The patient is currently breathing comfortably. Overall pain and discomfort to the right arm have slightly decreased. No chest pain, shortness of breath or cough. No abdominal pain or diarrhea. PHYSICAL EXAMINATION: Blood pressure 132/66, pulse of 73, temperature 98.8. He is 98% on room air. GENERAL DESCRIPTION: General description is a middle-aged male lying in bed in no distress. RESPIRATORY SYSTEM: Unlabored breathing. Clear to auscultation anteriorly. HEART: S1, S2. Regular rate and rhythm. ABDOMEN: Soft. No tenderness. Right arm swelling and redness have slightly decreased. DIAGNOSTIC IMPRESSION AND PLAN: Patient with right arm cellulitis with septic phlebitis from IV drug use. This patient did have Streptococcus agalactiae bacteremia. Repeat blood culture negative. Patient on cefazolin; may be a candidate for IV in the outpatient setting. manager care working on getting it improved. Continue cefazolin patient and monitor his clinical course closely. MMODL / IJN: [id number] /
--- NOTE | 2020-11-12 20:01 | PN ---
PROGRESS NOTE This is a 29-year-old gentleman who came in with history of heroin injection into his right upper arm. The patient came with marked cellulitis and redness of the upper arm. We did a venous ultrasound and found a great saphenous vein thrombosis. The patient had an MRI which showed cellulitis. No evidence of abscess. His redness is almost gone. The patient has some mild swelling. At this point patient is on IV antibiotic and we will follow with you. MMODL / IJN: [id number] /
[2020-11-13] MEDS: HYDROcodone/APAP 5-325MG 1 EACH TAB PO PRN ×5 (01:27→22:10)
[2020-11-13 07:00] LABS: Basophils # (A) 0.1 k/uL (0-0.2); Basophils % (A) 1 %; Eosinophils # (A) 0.1 k/uL (0-0.7); Eosinophils % (A) 1 %; HGB 13.5 gm/dL (13.0-17.5); Lymphocytes # (A) 4.7 k/uL (1.0-4.8); Lymphocytes % (A) 42 %; MCH 31.9 pg (25.0-35.0); MCHC 33.7 g/dL (31.0-37.0); MCV 94.7 fL (80.0-100.0); Mean Platelet Volume 7.4; Monocytes # (A) 0.6 k/uL (0-1.0); Monocytes % (A) 6 %; Neutrophils # (A) 5.3 k/uL (1.3-7.7); Neutrophils % (A) 47 %; Platelet Count 480 k/uL (150-450); RBC 4.23 m/uL (4.30-5.90); RDW 12.6 % (11.5-15.5); WBC 11.2 k/uL (3.8-10.6)
[2020-11-13] MEDS: ENOXAPARIN 40 MG/0.4 ML SYRINGE SQ SCH (07:23)
[2020-11-13] MEDS: SODIUM CHLORIDE 0.9% 1,000 ML IV SCH (07:23)
[2020-11-13 07:25] LABS: African American GFR (CKD) >90 (>60 ml/min/1.73 sqM); Anion Gap 9 mmol/L; Blood Urea Nitrogen 11 mg/dL (9-20); Carbon Dioxide 24 mmol/L (22-30); Chloride 107 mmol/L (98-107); Glucose 95 mg/dL (74-99); Non-African American GFR(CKD) >90 (>60 ml/min/1.73 sqM); Potassium 4.9 mmol/L (3.5-5.1); Sodium 140 mmol/L (137-145)
--- NOTE | 2020-11-13 14:14 | P.CNOR ---
History of Present Illness - [facility] Consult date: 11/13/20 Requesting physician: Zheng Turk Consult reason: other (decreased ROM RUE being tx for cellulitis and septic phlebitis) History of present illness: Patient is 29-year-old male presenting in hospital on 11/07/2020 concern for right arm infection. Patient says a couple weeks ago he began to use heroin again. He states that about a week ago his right arm began to appear larger in size and became inflamed and painful. patient says over the past few days since his been treated with IV antibiotics his inflammation and redness has been going down his arm. However, over the past few days he said he has lost some range of motion in his elbow. He says he has not been able to extend his arm all the way out and it is painful when he tries to. Patient says he is able to flex his arm fully. Patient states that his arm near his elbow feels very tight. He is holding it in a supinated position and points to his right upper extremity along the biceps region. Patient denies any previous orthopedic surgical history. Patient denies chest pain, fever, shortness breath, nausea, vomiting, change in vision, loss of bowel/bladder control. Past Medical History Past Medical History: No Reported History History of Any Multi-Drug Resistant Organisms: None Reported Past Surgical History: No Surgical Hx Reported Past Psychological History: No Psychological Hx Reported Smoking Status: Current every day smoker Past Alcohol Use History: None Reported Past Drug Use History: Heroin, Prescription Drug Abuse Medications and Allergies Home Medications Medication Instructions Recorded Confirmed Type No Known Home Medications 11/07/20 11/07/20 History Allergies Allergy/AdvReac Type Severity Reaction Status Date / Time No Known Allergies Allergy Verified 11/07/20 11:54 Physical Examination Right arm: Inspection: Very prominent antecubital vein in the right arm. Minimal erythema of the right elbow. Palpation: Mild TTP along the antecubital vein. NTTP throughout the rest of exam Sensation: Sensation is equal, symmetric, and intact, bilaterally throughout Range of motion: Full range of motion in abduction, external, internal rotation of shoulder and forward elevatio of shoulder. Full range of motion on extension and flexion of wrist. Full range of motion flexion right elbow. Limited extension of right elbow. Extension -40 of right elbow. Motor: 5/5 in it application development manager strength right hand; 5/5 in resisted wrist flexion and extension. 5/5 in resisted shoulder abduction, internal/external rotation and forward elevation. 4/5 in resisted flexion/extension of right elbow Neurovascular: Radial pulses intact bilaterally, 2+. Cap refill under 3 seconds in index finger right hand special tests: Negative Anais's bilaterally Results - Labs Labs: Abnormal Lab Results - Last 24 Hours (Table) 11/13/20 11/13/20 Range/Units 06:25 06:25 WBC 11.2 H (3.8-10.6) k/uL RBC 4.23 L (4.30-5.90) m/uL Plt Count 480 H (150-450) k/uL Creatinine 0.55 L (0.66-1.25) mg/dL Microbiology - Last 24 Hours (Table) 11/08/20 10:10 Blood Culture - Preliminary Blood No Growth after 120 hours H & H 11/07/20 11/08/20 11/11/20 Range/Units 11:52 05:32 05:59 Hgb 14.6 14.1 12.7 L (13.0-17.5) gm/dL Hct 40.7 40.4 37.9 L (39.0-53.0) % 11/13/20 Range/Units 06:25 Hgb 13.5 (13.0-17.5) gm/dL Hct 40.0 (39.0-53.0) % Result Diagrams: 11/13/20 06:25 11/13/20 06:25 Assessment and Plan Assessment: -Right arm cellulitis -Thrombophlebitis - IVDA Plan: 1. Right arm cellulitis/thrombophlebitis - patient seen at bedside this morning. MRI of right humerus performed on 11/10/2020 shows some edema without abscess. Infectious disease cardio following. No urgent orthopedic surgical intervention recommended at this time. We will continue to follow patient while in hospital 2. Appreciate medical management 3. Appreciate cardio and infectious disease management - patient on cefazolin and clindamycin for infection. SABINA is negative for any vegetations 4. Appreciate consult 5. Pain management - stable at this time; continue [place] and Tylenol 6. DVT prophylaxis - Lovenox 7. GI prophylaxis - mechanical 8. PT/OT - WBAT Time with Patient: Less than 30
[2020-11-13 14:16] VITALS: BMI 22.1
--- NOTE | 2020-11-13 16:00 | P.PN ---
<Zheng Turk - Last Filed: 11/13/20 15:43> Subjective Progress Note Date: 11/13/20 Hospital course: Patient is a 29-year-old male with a past medical history of IVDA with heroin. He presented to the hospitalon 11/07/20 with a chief complaint of right arm pain, redness, and swelling. Patient was admitted under our services for sepsis secondary to right arm cellulitis. He has been treated with IV antibiotics and currently on cefazolin. Blood cultures positive for Strep P pyogenes group A. SABINA completed showing no evidence of vegetation. infectious disease following. CT right arm completed 11/09/20 showed diffuse soft tissue edema with some fullness to the musculature correlating with cellulitis/soft tissue edema and suspicious for superficial venous thrombosis with no definable abscesses reported. right upper extremity Doppler completed showing superficial thrombosis of the cephalic vein and right upper extremity otherwise no evidence of DVTs. right upper extremity MRI confirming soft tissue infection or acute cellulitis with intramuscular involvement negative for fluid collection or abscess. Patient reports over the past few days he has lost range of motion in his right elbow and is now unable to extend his right arm. Consults placed to PT and orthopedic surgery at this time. Physical exam: Patient seen and fully evaluated at bedside this morning, he reports over the past few days he has lost range of motion in his right elbow and is now unable to extend his right arm. he reports redness, swelling, and pain has significantly improved. Patient denies having pain in his elbow, patient reports feeling of tightness in AC region. Patient with full range of motion and strong strength in right shoulder, wrists, and hands. Consults placed to PT and orthopedic surgery at this time. patient remains on IV antibiotics: Cefazolin. Repeat blood culture drawn 11/08/20 showing no growth after 120 hours. Vital signs reviewed and stable. General: Nontoxic, no distress and appears stated age. Derm: Skin warm and dry, normal coloration for ethnicity. mild erythema and edema to right forearm showing significant improvement from previously outlined area. Head: Atraumatic, normocephalic and symmetric. Eyes: EOMs intact, no lid lag, and anicteric sclera Mouth: no lip lesions, mucus membranes moist Cardiovascular: regular rate and rhythm with normal S1S2, no murmur, positive posterior tibial pulses bilaterally, and cap refill < 2 seconds. Lungs: Respirations even, regular, and unlabored on room air. Lungs CTA bilaterally, no rhonchi, no rales, no wheezing, and no accessory muscle usage. Abdominal: soft, nontender to palpation, no guarding, no appreciable organomegaly Ext: ROM intact. No gross muscle atrophy, no edema, no contractures Neuro: Speech clear, face symmetrical and CN II-XII grossly intact with no noted focal neuro deficits Psych: Alert and oriented to person, place, time, and situation. Appropriate and pleasant affect. Assessment and Plan of Care: Right arm cellulitis and septic phlebitis Sepsis without septic shock Bacteremia with group a Streptococcus pyogenes -Continue IV antibiotics: cefazolin -Infectious disease following -Blood cultures positive for Strep P pyogenes group A. Repeat cultures showing no growth after 120 hours. -SABINA completed showing no evidence of vegetation. infectious disease following. -CT right arm completed 11/09/20 showed diffuse soft tissue edema with some fullness to the musculature correlating with cellulitis/soft tissue edema and suspicious for superficial venous thrombosis with no definable abscesses reported. -Right upper extremity Doppler completed showing superficial thrombosis of the cephalic vein and right upper extremity otherwise no evidence of DVTs. right upper extremity -MRI confirming soft tissue infection or acute cellulitis with intramuscular involvement negative for fluid collection or abscess. -Patient reports over the past few days he has lost range of motion in his right elbow and is now unable to extend his right arm. Consults placed to PT and orthopedic surgery at this time. Hypovolemic hyponatremia, resolved with IV hydration History of IVDA heroin abuse Patient educated on the importance of stopping IV drug abuse. Patient educated on risks of continued use up to and including . Hypokalemia, resolved CODE STATUS: Full code DVT prophylaxis: Lovenox Discussed with: Pt and RN Anticipated discharge date: Clinical course to determine Anticipated discharge place: Home A total of 45 minutes was spent on the care of this complex patient more than 50% of the time was spent in counseling and care coordination. Objective - Vital Signs Vital signs: Vital Signs Temp 97.6 F 11/13/20 07:04 Pulse 98 11/13/20 07:04 Resp 17 11/13/20 07:52 BP 110/68 11/13/20 07:04 Pulse Ox 98 11/13/20 04:40 Intake & Output 11/12/20 11/13/20 11/13/20 18:59 06:59 18:59 Intake Total 50 200 Balance 50 200 Intake: IV 50 Intake, IV Titration 200 Amount Sodium Chloride 0.9% 1, 100 000 ml @ 20 mls/hr IV . Q24H [facility] Rx#:[id number] ceFAZolin 2 gm In Sodium 100 Chloride 0.9% 50 ml @ 100 mls/hr IVPB Q8HR [facility] Rx# :[id number] Other: Voiding Method Toilet Toilet Toilet # Voids 2 - Labs CBC & Chem 7: 11/13/20 06:25 11/13/20 06:25 Labs: Abnormal Lab Results - Last 24 Hours (Table) 11/13/20 11/13/20 Range/Units 06:25 06:25 WBC 11.2 H (3.8-10.6) k/uL RBC 4.23 L (4.30-5.90) m/uL Plt Count 480 H (150-450) k/uL Creatinine 0.55 L (0.66-1.25) mg/dL Microbiology - Last 24 Hours (Table) 11/08/20 10:10 Blood Culture - Preliminary Blood No Growth after 96 hours <Estefani Eng - Last Filed: 11/13/20 20:35> Objective - Vital Signs Vital signs: Vital Signs Temp 98 F 11/13/20 19:37 Pulse 80 11/13/20 19:37 Resp 16 11/13/20 19:37 BP 114/69 11/13/20 19:37 Pulse Ox 99 11/13/20 19:37 Intake & Output 11/13/20 11/13/20 11/14/20 06:59 18:59 06:59 Intake Total 200 100 Balance 200 100 Weight 68.039 kg Intake: Intake, IV Titration 200 100 Amount Sodium Chloride 0.9% 1, 100 000 ml @ 20 mls/hr IV . Q24H [facility] Rx#:[id number] ceFAZolin 2 gm In Sodium 100 100 Chloride 0.9% 50 ml @ 100 mls/hr IVPB Q8HR [facility] Rx# :[id number] Other: Voiding Method Toilet Toilet # Voids 1 - Labs CBC & Chem 7: 11/13/20 06:25 11/13/20 06:25 Labs: Abnormal Lab Results - Last 24 Hours (Table) 11/13/20 11/13/20 Range/Units 06:25 06:25 WBC 11.2 H (3.8-10.6) k/uL RBC 4.23 L (4.30-5.90) m/uL Plt Count 480 H (150-450) k/uL Creatinine 0.55 L (0.66-1.25) mg/dL Microbiology - Last 24 Hours (Table) 11/08/20 10:10 Blood Culture - Preliminary Blood No Growth after 120 hours Assessment and Plan Assessment: Zheng Turk NP rendered care for this patient independently, reviewed the findings and plan as documented in the note above. I did not physically speak with or examine the patient on this date.
--- NOTE | 2020-11-13 19:06 | PN ---
PROGRESS NOTE DATE OF SERVICE: 11/13/2020 REASON FOR FOLLOWUP: Right upper extremity cellulitis with streptococcal bacteremia. INTERVAL HISTORY: The patient is afebrile. He is breathing comfortably. Denies having any chest pain, shortness of breath or cough. No abdominal pain. Overall pain and discomfort to the right upper arm has improved. PHYSICAL EXAMINATION: Blood pressure 105/49, pulse of 66, temperature 98. He is 100% on room air. GENERAL DESCRIPTION: General description is a middle-aged male lying in bed in no distress. RESPIRATORY SYSTEM: Unlabored breathing. Clear to auscultation anteriorly. HEART: S1, S2. Regular rate and rhythm. ABDOMEN: Soft. No tenderness. Right upper extremity swelling and redness has improved. LABS: Hemoglobin is 13.5, white count 11.2, BUN of 11, creatinine 0.55. DIAGNOSTIC IMPRESSION AND PLAN: Patient with right upper extremity cellulitis and septic phlebitis from IV drug use. Blood culture with Streptococcus agalactiae. Blood culture repeat has been negative. Patient is covered with cefazolin. Try to arrange for the outpatient . Continue supportive care. MMODL / IJN: [id number] /
[2020-11-14] MEDS: HYDROcodone/APAP 5-325MG 1 EACH TAB PO PRN ×3 (06:03→17:03)
[2020-11-14] MEDS: SODIUM CHLORIDE 0.9% 1,000 ML IV SCH (07:00)
[2020-11-14] MEDS: ENOXAPARIN 40 MG/0.4 ML SYRINGE SQ SCH (08:07)
--- NOTE | 2020-11-14 11:06 | P.PN ---
<Zheng Turk - Last Filed: 11/14/20 17:17> Subjective Progress Note Date: 11/14/20 Hospital course: Patient is a 29-year-old male with a past medical history of IVDA with heroin. He presented to the hospitalon 11/07/20 with a chief complaint of right arm pain, redness, and swelling. Patient was admitted under our services for sepsis secondary to right arm cellulitis. He has been treated with IV antibiotics and currently on cefazolin. Blood cultures positive for Strep P pyogenes group A. SABINA completed showing no evidence of vegetation. infectious disease following. CT right arm completed 11/09/20 showed diffuse soft tissue edema with some fullness to the musculature correlating with cellulitis/soft tissue edema and suspicious for superficial venous thrombosis with no definable abscesses reported. right upper extremity Doppler completed showing superficial thrombosis of the cephalic vein and right upper extremity otherwise no evidence of DVTs. right upper extremity MRI confirming soft tissue infection or acute cellulitis with intramuscular involvement negative for fluid collection or abscess. On 11/13/20 patient reported that over the past couple days he has been unable to fully extend arm. Orthopedic specialists were consulted, stating no urgent orthopedic surgical intervention is recommended at this time. Patient continues to report inability to fully extend arm, this was discussed with and recommendation received for repeat MRI. Orders placed for MRI of right arm/elbow Physical exam: Patient seen and fully evaluated at bedside this morning, he continues to report inability to fully extend arm, this was discussed with and recommendation received for repeat MRI. Erythema and edema of right significantly improved. Patient denies having any other complaints at this time including numbness/tingling/weakness. Continues to have full range of motion and sensation to distal right extremity and full flexion and rotation ability. Patient with limited ability to extend arm fully. Order was placed for repeat MRI. If negative, patient will likely need to follow up outpatient for physical therapy and will likely be discharged home tomorrow with plans for weekly IV antibiotic Delvance. Vital signs reviewed and stable. General: Nontoxic, no distress and appears stated age. Derm: Skin warm and dry, normal coloration for ethnicity. mild erythema and edema to right forearm showing significant improvement from previously outlined area. Head: Atraumatic, normocephalic and symmetric. Eyes: EOMs intact, no lid lag, and anicteric sclera Mouth: no lip lesions, mucus membranes moist Cardiovascular: regular rate and rhythm with normal S1S2, no murmur, positive posterior tibial pulses bilaterally, and cap refill < 2 seconds. Lungs: Respirations even, regular, and unlabored on room air. Lungs CTA bilaterally, no rhonchi, no rales, no wheezing, and no accessory muscle usage. Abdominal: soft, nontender to palpation, no guarding, no appreciable organomegaly Ext: ROM intact. No gross muscle atrophy, no edema, no contractures Neuro: Speech clear, face symmetrical and CN II-XII grossly intact with no noted focal neuro deficits Psych: Alert and oriented to person, place, time, and situation. Appropriate and pleasant affect. Assessment and Plan of Care: Right arm cellulitis and septic phlebitis Sepsis without septic shock Bacteremia with group a Streptococcus pyogenes -Continue IV antibiotics: cefazolin -Infectious disease following -Blood cultures positive for Strep P pyogenes group A. Repeat cultures showing no growth after 144 hours. -SABINA completed showing no evidence of vegetation. infectious disease following. -CT right arm completed 11/09/20 showed diffuse soft tissue edema with some fullness to the musculature correlating with cellulitis/soft tissue edema and suspicious for superficial venous thrombosis with no definable abscesses reported. -Right upper extremity Doppler completed showing superficial thrombosis of the cephalic vein and right upper extremity otherwise no evidence of DVTs. right upper extremity -MRI confirming soft tissue infection or acute cellulitis with intramuscular i nvolvement negative for fluid collection or abscess. -Orthopedic specialists following, stating no urgent orthopedic surgical intervention is recommended at this time. -Patient continues to report inability to fully extend arm, this was discussed with and recommendation received for repeat MRI. -Orders placed for MRI of right arm/elbow Hypovolemic hyponatremia, resolved with IV hydration History of IVDA heroin abuse Patient educated on the importance of stopping IV drug abuse. Patient educated on risks of continued use up to and including . Hypokalemia, resolved CODE STATUS: Full code DVT prophylaxis: Lovenox Discussed with: Pt and RN Anticipated discharge date: Possibly tomorrow pending imaging results Anticipated discharge place: Home with weekly IV antibiotic Delvance. A total of 45 minutes was spent on the care of this complex patient more than 50% of the time was spent in counseling and care coordination. Objective - Vital Signs Vital signs: Vital Signs Temp 97.8 F 11/14/20 07:18 Pulse 78 11/14/20 07:53 Resp 16 11/14/20 07:53 BP 117/69 11/14/20 07:18 Pulse Ox 99 11/14/20 04:38 Intake & Output 11/13/20 11/14/20 11/14/20 18:59 06:59 18:59 Intake Total 100 1200 Output Total 300 Balance 100 900 Weight 68.039 kg Intake: Intake, IV Titration 100 Amount ceFAZolin 2 gm In Sodium 100 Chloride 0.9% 50 ml @ 100 mls/hr IVPB Q8HR [facility] Rx# :[id number] Oral 1200 Output: Urine 300 Other: Voiding Method Toilet Toilet Toilet # Voids 1 1 - Labs CBC & Chem 7: 11/13/20 06:25 11/13/20 06:25 Labs: Microbiology - Last 24 Hours (Table) 11/08/20 10:10 Blood Culture - Preliminary Blood No Growth after 120 hours <Estefani Eng - Last Filed: 11/14/20 21:14> Objective - Vital Signs Vital signs: Vital Signs Temp 97.9 F 11/14/20 20:26 Pulse 90 11/14/20 20:26 Resp 18 11/14/20 20:26 BP 110/65 11/14/20 20:26 Pulse Ox 98 11/14/20 20:26 Intake & Output 11/14/20 11/14/20 11/15/20 06:59 18:59 06:59 Intake Total 1200 Output Total 300 Balance 900 Intake: Oral 1200 Output: Urine 300 Other: Voiding Method Toilet Toilet # Voids 1 - Labs CBC & Chem 7: 11/13/20 06:25 11/13/20 06:25 Labs: Microbiology - Last 24 Hours (Table) 11/08/20 10:10 Blood Culture - Final Blood No Growth after 144 hours Assessment and Plan Assessment: Patient seen and examined independently. Patient was also seen by Zheng Turk NP and case was discussed. I am in agreement with subjective, physical exam, assessment and plan as written above and amended below. Patient seen and examined at bedside. He feels as though his arm is slightly better today though he still cannot straighten it significantly. He denies any chest pain or shortness of breath. Periphery discussion that he cannot use IV drugs again. After leaving the hospital he plans to move out of [place] to get out of the truck seen. General: non toxic, no distress, appears at stated age Derm: warm, dry Head: atraumatic, normocephalic, symmetric Eyes: EOMI, no lid lag, anicteric sclera Mouth: no lip lesion, mucus membranes moist Cardiovascular: S1S2 reg, no murmur, positive posterior tibial pulse bilateral, Lungs: CTA bilateral, no rhonchi, no rales , no accessory muscle use Ext: no gross muscle atrophy, no edema, no contractures Right upper extremity with palpable vein from mid forearm up through mid upper arm, inability to extend arm flat, able to squeeze hand no difficult with internal and external rotation, supination or pronation. No limitation to flexion and elbow. Psych: Alert, oriented, appropriate affect Case discussed with Dr. Munguia. If he continues to have decreased range of motion in the arm can follow up outpatient for possible veinectomy
--- NOTE | 2020-11-14 16:14 | CT ---
EXAMINATION TYPE: CT elbow RT w con DATE OF EXAM: 11/14/2020 COMPARISON: CT right upper extremity 5 days ago. HISTORY: right elbow pain, swelling, abscess. hx of IV drug use. CT DLP: 242.4 mGycm Automated exposure control for dose reduction was used. CONTRAST: Performed with IV Contrast, patient injected with 100 mL of Isovue 300. FINDINGS: Ossific structures near elbow are maintained. No fracture or dislocation. No new bony destruction. There is persistent filling defect in the superficial basilic vein. There is markedly improved subcutaneous edema and fat stranding along course of the mid to distal hum erus. Some mild residual fat stranding and fluid near the olecranon remains present less prominent th an prior. Mild superficial fluid and fat stranding extends to the proximal radius and ulnar level. Mu scle bulk is maintained. No new well-formed fluid collection or thick-walled rim-enhancing identified . IMPRESSION: Markedly improved inflammatory change centered near elbow without new focal thick walled fluid collection or drainable abscess. Persistent superficial venous thrombosis.
--- NOTE | 2020-11-14 17:15 | PN ---
PROGRESS NOTE DATE OF SERVICE: 11/14/2020 REASON FOR FOLLOWUP: Right upper extremity cellulitis and septic phlebitis. INTERVAL HISTORY: The patient is afebrile. The patient is still complaining of pain to the right upper extremity; not any worsening, though. No chest pain, shortness of breath or cough. No abdominal pain or diarrhea. PHYSICAL EXAMINATION: Blood pressure 101/61 with a pulse of 72, temperature 97.5. He is 98% on room air. GENERAL DESCRIPTION: General description is a middle-aged male lying in bed in no distress. RESPIRATORY SYSTEM: Unlabored breathing. Clear to auscultation anteriorly. HEART: S1, S2. Regular rate and rhythm. ABDOMEN: Soft. No tenderness. Right upper extremity swelling persists. Did have feeling. LABS: Hemoglobin is 13.5, white count 11.2 as of 11/13. No blood work has been done since then. Blood culture repeat has been negative. DIAGNOSTIC IMPRESSION AND PLAN: Patient with right upper extremity cellulitis with concern for septic phlebitis, with no evidence of any drainable abscess, with concern for myositis. MRI repeat has been ordered. Patient to continue with cefazolin and monitor clinical course closely. MMODL / IJN: [id number] /
[2020-11-15] MEDS: HYDROcodone/APAP 5-325MG 1 EACH TAB PO PRN ×2 (00:11→10:07)
[2020-11-15 08:27] VITALS: BP 108/69; PULSE 87; RESP 17; TEMP 98.2
--- NOTE | 2020-11-15 09:47 | P.DS ---
<Zheng Turk - Last Filed: 11/15/20 13:41> Providers Expected date of discharge: 11/15/20 Hospital Course: Discharge Diagnosis: Right arm cellulitis and septic phlebitis Sepsis without septic shock Bacteremia with group a Streptococcus pyogenes Hypovolemic hyponatremia, resolved with IV hydration History of IVDA heroin abuse Hypokalemia, resolved Hospital Course: Patient is a 29-year-old male with a past medical history of IVDA with heroin. He presented to the hospitalon 11/07/20 with a chief complaint of right arm pain, redness, and swelling. Patient was admitted under our services for sepsis secondary to right arm cellulitis. He has been treated with IV antibiotics and currently on cefazolin. Blood cultures positive for Strep P pyogenes group A. SABINA completed showing no evidence of vegetation. infectious disease following. CT right arm completed 11/09/20 showed diffuse soft tissue edema with some fullness to the musculature correlating with cellulitis/soft tissue edema and suspicious for superficial venous thrombosis with no definable abscesses reported. right upper extremity Doppler completed showing superficial thrombosis of the cephalic vein and right upper extremity otherwise no evidence of DVTs. right upper extremity MRI confirming soft tissue infection or acute cellulitis with intramuscular involvement negative for fluid collection or abscess. On 11/13/20 patient reported that over the past couple days he has been unable to fully extend arm. Orthopedic specialists were consulted, stating no urgent orthopedic surgical intervention is recommended at this time. 11/14/20 Pt continues to report inability to fully extend arm but did show mild improvement. A repeat CT was completed revealing persistent superficial venous thrombosis with markedly improved inflammatory changes centered near elbow without new focal thick walled fluid collection or drainable abscesses noted. Erythema and edema to right arm with significant improvement and nearly resolved. 11/15/20 patient was able to fully extend arm at this time. Patient reports feeling significantly better and denies having any numbness/tingling or weakness in his extremity. Patient is medically stable for discharge home at this time. He is being discharged home with plans for weekly IV antibiotic Delvance. Patient strongly encouraged to refrain from any further intravenous drug use and educated that continued use of these drugs places him at high risk for serious health consequences up to and including . Physical exam: Vital signs reviewed and stable. General: Nontoxic, no distress and appears stated age. Derm: Skin warm and dry, normal coloration for ethnicity. mild erythema and edema to right forearm nearly resolved Head: Atraumatic, normocephalic and symmetric. Eyes: EOMs intact, no lid lag, and anicteric sclera Mouth: no lip lesions, mucus membranes moist Cardiovascular: regular rate and rhythm with normal S1S2, no murmur, positive posterior tibial pulses bilaterally, and cap refill < 2 seconds. Lungs: Respirations even, regular, and unlabored on room air. Lungs CTA bilaterally, no rhonchi, no rales, no wheezing, and no accessory muscle usage. Abdominal: soft, nontender to palpation, no guarding, no appreciable organomegaly Ext: ROM intact. No gross muscle atrophy, no edema, no contractures Neuro: Speech clear, face symmetrical and CN II-XII grossly intact with no noted focal neuro deficits Psych: Alert and oriented to person, place, time, and situation. Appropriate and pleasant affect. A total of 45 minutes of time were spent preparing this complex discharge summary. Assessment: I reviewed the documentation as provided by the NESSA above, who is the original author of this note. I agree with the documented assessment and plan, with the following changes: None Patient Condition at Discharge: Stable Plan - Discharge Summary New Discharge Prescriptions: No Action No Known Home Medications Discharge Medication List No Known Home Medications 11/07/20 [History] Follow up Appointment(s)/Referral(s): Leighton Turner MD [REFERRING] - 11/22/20 2:20 pm (They will email you the new patient paper work if you cannot print it off please arrive a half hour early.) [facility],Infusion [NON-STAFF] - 1 Week Patient Instructions/Handouts: Cellulitis (DC), Hyponatremia (DC), Fever in Adults (GEN), Leukocytosis (DC) Activity/Diet/Wound Care/Special Instructions: You will have to go the [facility] office for your weekly dose of delvance. You will receive 2 doses to complete your course of antibiotics for your blood infection- PLEASE DO NOT MISS A DOSE. Your first dose is tomorrow 11/16/20. - the office will call you to set up a time. Good luck on your journey to sobriety. Please refrain from using any intravenous drugs. Continued use of IV drugs places you at high risk for serious health consequences up to and including . Discharge Disposition: HOME SELF-CARE <Chuck Parekh - Last Filed: 11/15/20 15:30> Providers Date of admission: 11/07/20 13:24 Attending physician: Estefani Eng DO Consults: 11/08/20 08:45 Consult Physician Routine Consulting Provider: Maranda Au Consult Reason/Comments: bacteremia Do you want consulting provider notified?: Yes 11/09/20 08:09 Consult Physician Routine Consulting Provider: Asif Munguia Consult Reason/Comments: phlebitis (septic?) RUE Do you want consulting provider notified?: Yes 11/13/20 12:26 Consult Physician Routine Consulting Provider: Shan Benítez Consult Reason/Comments: decreased ROM RUE being tx for cellulitis and septic phlebitis Do you want consulting provider notified?: Yes Primary care physician: Stated None
[2020-11-15] MEDS: ENOXAPARIN 40 MG/0.4 ML SYRINGE SQ SCH (10:06)
== END 2020-11-15 12:05 | disposition home or self-care (01) | DRG 872 ==
LOC: EC 11:02 → 5NMEDONC 13:24
PROVIDERS: ADMIT Internal Medicine; ATTEND Internal Medicine
PROC: B24BZZ4 Ultrasonography of Heart with Aorta, Transesophageal (ICD-10-PCS; principal; 2020-11-12 07:30)
DX: A40.0 Sepsis due to streptococcus, group A (principal); E87.1 Hypo-osmolality and hyponatremia; L03.113 Cellulitis of right upper limb; F11.20 Opioid dependence, uncomplicated; F14.20 Cocaine dependence, uncomplicated; I95.9 Hypotension, unspecified; I80.8 Phlebitis and thrombophlebitis of other sites; E86.1 Hypovolemia; E87.6 Hypokalemia; F17.200 Nicotine dependence, unspecified, uncomplicated; R11.2 Nausea with vomiting, unspecified; Z71.51 Drug abuse counseling and surveillance of drug abuser
CPT/HCPCS: 36415; 80048; 80053; 80202; 82550; 83605; 83735; 84295; 85025; 85652; 86140; 87040; 87077; 87186; 93306; 93312; 93325; 96361; 96365; 96366; 96375; 99285

== ENCOUNTER 2022-10-03 22:48 | Inpatient (IN) | payer MEDICAID, OTHER ==
[2022-10-04] MEDS ORDERED: MAG HYDROX/AL HYDROX/SIMETH 30 ML CUP PO PRN (01:46)
[2022-10-04] MEDS ORDERED: hydrOXYzine HCL 50 MG/ML 1 ML VIAL IM PRN (01:46)
[2022-10-04] MEDS ORDERED: ACETAMINOPHEN TAB 325 MG TAB PO PRN (01:46)
[2022-10-04] MEDS ORDERED: MAGNESIUM HYDROXIDE 2,400 MG/30 ML CUP PO PRN (01:46)
[2022-10-04] MEDS ORDERED: haloperidoL 5 MG TAB PO PRN (01:46)
[2022-10-04] MEDS ORDERED: HALOPERIDOL LACTATE 5 MG/ML 1 ML VIAL IM PRN (01:46)
[2022-10-04] MEDS ORDERED: IBUPROFEN 600 MG TAB PO PRN (01:46)
[2022-10-04] MEDS ORDERED: LORazepam 2 MG/ML INJ IM PRN (01:46)
[2022-10-04] MEDS: LORazepam 1 MG TAB PO PRN ×3 (02:05→21:44)
[2022-10-04 02:17] LABS: Amphetamine Screen,Urine Not Detected (NotDetected); Barbiturate Screen,Urine Not Detected (NotDetected); Benzodiazepines Screen,Urine Detected (NotDetected); Cocaine Screen,Urine Not Detected (NotDetected); Methadone Screen, Urine Not Detected (NotDetected); Opiate Screen,Urine Not Detected (NotDetected); Oxycodone Screen, Urine Not Detected (NotDetected); Phencyclidine Screen,Urine Not Detected (NotDetected); Tricyclic Antidepressant,Urine Detected (NotDetected); Urn Cannabinoid Scrn Not Detected (NotDetected)
--- NOTE | 2022-10-04 02:57 | ED ---
Psych HPI - General Chief Complaint: Psychiatric Symptoms Stated Complaint: Suicidal Time Seen by Provider: 10/03/22 23:01 Source: patient Mode of arrival: ambulatory - History of Present Illness Initial Comments: 31-year-old male who presents to the emergency department reporting depression. States he's been extremely stressed recently and has thoughts of harming himself. States that he would do it in any way possible which includes walking into traffic or hanging himself. Denies attempting suicide. Denies current drug or alcohol use. No hallucinations. No homicidal ideations. No other alleviating, precipitating or modifying factors - Related Data Home Medications Medication Instructions Recorded Confirmed No Known Home Medications 11/07/20 11/07/20 Allergies Allergy/AdvReac Type Severity Reaction Status Date / Time No Known Allergies Allergy Verified 11/07/20 11:54 Review of Systems ROS Statement: Those systems with pertinent positive or pertinent negative responses have been documented in the HPI. ROS Other: All systems not noted in ROS Statement are negative. Past Medical History Past Medical History: No Reported History History of Any Multi-Drug Resistant Organisms: None Reported Past Surgical History: No Surgical Hx Reported Past Psychological History: No Psychological Hx Reported Smoking Status: Current every day smoker Past Alcohol Use History: None Reported Past Drug Use History: Heroin, Prescription Drug Abuse General Exam Limitations: no limitations General appearance: alert, in no apparent distress Head exam: Present: atraumatic, normocephalic, normal inspection Eye exam: Present: normal appearance, PERRL, EOMI. Absent: scleral icterus, conjunctival injection, periorbital swelling ENT exam: Present: normal exam, mucous membranes moist Neck exam: Present: normal inspection. Absent: tenderness, meningismus, lymphadenopathy Respiratory exam: Present: normal lung sounds bilaterally. Absent: respiratory distress, wheezes, rales, rhonchi, stridor Cardiovascular Exam: Present: regular rate, normal rhythm, normal heart sounds. Absent: systolic murmur, diastolic murmur, rubs, gallop, clicks GI/Abdominal exam: Present: soft, normal bowel sounds. Absent: distended, tenderness, guarding, rebound, rigid Extremities exam: Present: normal inspection, full ROM, normal capillary refill. Absent: tenderness, pedal edema, joint swelling, calf tenderness Back exam: Present: normal inspection Neurological exam: Present: alert, oriented X3, CN II-XII intact Psychiatric exam: Present: depressed, suicidal ideation Skin exam: Present: warm, dry, intact, normal color. Absent: rash Course Vital Signs 10/03/22 22:51 Temperature 98.7 F Pulse Rate 107 H Respiratory 16 Rate Blood Pressure 136/78 O2 Sat by Pulse 97 Oximetry Medical Decision Making - Medical Decision Making Was pt. sent in by a medical professional or institution (, PA, COMBO WELDER, urgent care, hospital, or correction...) When possible be specific @ -No Did you speak to anyone other than the patient for history (EMS, parent, family, police, friend...)? What history was obtained from this source @ -No Did you review nursing and triage notes (agree or disagree)? Why? @ -I reviewed and agree with nursing and triage notes Were old charts reviewed (outside hosp., previous admission, EMS record, old EKG, old radiological studies, urgent care reports/EKG's, correction records)? Report findings @ -No old charts were reviewed Differential Diagnosis (chest pain, altered mental status, abdominal pain women, abdominal pain men, vaginal bleeding, weakness, fever, dyspnea, syncope, headache, dizziness, GI bleed, back pain, seizure, CVA, palpatations, mental health, musculoskeletal)? @ -Differential Mental Health Depression, anxiety, bipolar, psychosis, schizophrenia, borderline personality, situational depression, adjustment disorder, behavioral disorder, brain tumor, malingering, substance abuse, encephalopathy, medication reaction, dementia, hypothyroidism, degenerative neurologic disorder, lupus.... This is not meant to be all-inclusive list EKG interpreted by me (3pts min.). @ -Not completed X-rays interpreted by me (1pt min.). @ -None done CT interpreted by me (1pt min.). @ -None done U/S interpreted by me (1pt. min.). @ -None done What testing was considered but not performed or refused? (CT, X-rays, U/S, labs)? Why? @ -None What meds were considered but not given or refused? Why? @ -None Did you discuss the management of the patient with other professionals (professionals i.e. , PA, COMBO WELDER, lab, RT, psych nurse, aids social worker, security control center operator, teacher, state wildlife officer, case repairer)? Give summary @ -Spoke with EPS nurse Was smoking cessation discussed for >3mins.? @ -No Was critical care preformed (if so, how long)? @ -No Were there social determinants of health that impacted care today? How? (Homelessness, low income, unemployed, alcoholism, drug addiction, transportation, low edu. Level, literacy, decrease access to med. care, long-term, rehab)? @ -No Was there de-escalation of care discussed even if they declined (Discuss DNR or withdrawal of care, Hospice)? DNR status @ -No What co-morbidities impacted this encounter? (DM, HTN, Smoking, COPD, CAD, Cancer, CVA, ARF, Chemo, Hep., AIDS, mental health diagnosis, sleep apnea, morbid obesity)? @ -None Was patient admitted / discharged? Hospital course, mention meds given and route, prescriptions, significant lab abnormalities, going to OR and other pertinent info. @ -Upon arrival patient is placed into room 14. A thorough history and physical exam was performed. Patient is evaluated by EPS. They feel the patient needs to be admitted. He voluntarily sign himself in and is taken to the floor Undiagnosed new problem with uncertain prognosis? @ -Yes Drug Therapy requiring intensive monitoring for toxicity (Heparin, Nitro, In sulin, Cardizem)? @ -No Were any procedures done? @ -No Diagnosis/symptom? @ -Acute depression, acute suicidal ideations Acute, or Chronic, or Acute on Chronic? @ -Acute Uncomplicated (without systemic symptoms) or Complicated (systemic symptoms)? @ -Complicated Side effects of treatment? @ -No Exacerbation, Progression, or Severe Exacerbation? @ -No Poses a threat to life or bodily function? How? (Chest pain, USA, MD, pneumonia, PE, COPD, DKA, ARF, appy, cholecystitis, CVA, Diverticulitis, Homicidal, Suicidal, threat to staff... and all critical care pts) @ -Yes patient is actively suicidal - Lab Data Lab Results 10/04/22 10/04/22 Range/Units 01:13 01:17 Urine Opiates Screen Not Detected (NotDetected) Ur Oxycodone Screen Not Detected (NotDetected) Urine Methadone Screen Not Detected (NotDetected) Ur Propoxyphene Screen Not Detected (NotDetected) Ur Barbiturates Screen Not Detected (NotDetected) U Tricyclic Antidepress Detected H (NotDetected) Ur Phencyclidine Scrn Not Detected (NotDetected) Ur Amphetamines Screen Not Detected (NotDetected) U Methamphetamines Scrn Not Detected (NotDetected) U Benzodiazepines Scrn Detected H (NotDetected) Urine Cocaine Screen Not Detected (NotDetected) U Marijuana (THC) Screen Not Detected (NotDetected) Coronavirus (PCR) Not Detected (Not Detectd) Disposition Clinical Impression: Depression Disposition: TRANSFER TO PSYCH HOSP/UNIT Condition: Stable Is patient prescribed a controlled substance at d/c from ED?: No Time of Disposition: 02:57 Decision to Admit Reason: Admit from EC Decision Date: 10/04/22 Decision Time: 02:57
[2022-10-04] MEDS: NICOTINE 21MG/24HR PATCH TRANSDERM SCH ×2 (11:19→14:08)
--- NOTE | 2022-10-04 16:45 | P.HP ---
Psychiatric H&P - . H&P Date: 10/04/22 History & Physical: Allergies Allergy/AdvReac Type Severity Reaction Status Date / Time No Known Allergies Allergy Verified 11/07/20 11:54 Vital Signs Temp 97.7 F 10/04/22 03:30 Pulse 79 10/04/22 03:30 Resp 18 10/04/22 03:30 BP 122/79 10/04/22 03:30 Pulse Ox 98 10/04/22 03:30 FiO2 Intake & Output 10/03/22 10/04/22 10/04/22 18:59 06:59 18:59 Weight 71.4 kg Laboratory Last Values Urine Opiates Screen Not Detected (NotDetected) 10/04/22 01:17 Ur Oxycodone Screen Not Detected (NotDetected) 10/04/22 01:17 Urine Methadone Screen Not Detected (NotDetected) 10/04/22 01:17 Ur Propoxyphene Screen Not Detected (NotDetected) 10/04/22 01:17 Ur Barbiturates Screen Not Detected (NotDetected) 10/04/22 01:17 U Tricyclic Antidepress Detected (NotDetected) H 10/04/22 01:17 Ur Phencyclidine Scrn Not Detected (NotDetected) 10/04/22 01:17 Ur Amphetamines Screen Not Detected (NotDetected) 10/04/22 01:17 U Methamphetamines Scrn Not Detected (NotDetected) 10/04/22 01:17 U Benzodiazepines Scrn Detected (NotDetected) H 10/04/22 01:17 Urine Cocaine Screen Not Detected (NotDetected) 10/04/22 01:17 U Marijuana (THC) Screen Not Detected (NotDetected) 10/04/22 01:17 Coronavirus (PCR) Not Detected (Not Detectd) 10/04/22 01:13 10/04/22 15:58 31-year-old male who presents to the emergency department reporting depression. States he's been extremely stressed recently and has thoughts of harming himself. States that he would do it in any way possible which includes walking into traffic or hanging himself. Denies attempting suicide. In fact he tells me that he just needed help real bad he knew he had to say he was suicidal in order to get it Denies current drug or alcohol use. No hallucinations. No homicidal ideations. No other alleviating, precipitating or modifying factors. History of present illness the patient has had trouble with ADHD his whole life and was treated with stimulants however when he was given Concerta it caused him to hyperfocus and loses personality and feel empty, so he doesn't like those kind of medicines. His whole life he has had to push himself to do things and he discovered that when he drank alcohol that made him feel a lot better and then he graduated to heroin and crystal meth. 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 He notices that he goes from doing a fabulous job and getting a whole bunch done and then crashing into periods of time where he can hardly get out of bed and doesn't do anything at all. He is about to lose his business. He took up drinking some sort of an energy drink that when he talks he got hypomanic and he could function well. But he was up using 10 a day at $10 each and decided to back off and found that he couldn't and went into withdrawal. He then started to aid himself decided maybe just walk out into traffic or hang himself. He has tried Seroquel although is never been prescribed his girlfriend hadn't and when he takes he has no bad side effects and does help him calm down his racing thoughts and sleep. Mental status exam: The patient could remember only 2 of 3 objects after 3 minutes his mind gets racing and hits often other directions when you ask him to do a task. He could name the last 4 presidents and 3 of the [place] [employer]. He could spell world backward and subtract 7 from 93. He abstracted the cats and snakes eat rodents but then could not think of anything else similar. For the grass looks screen and outside offense he said you should see what you have. He denies any psychotic symptoms except when he does withdrawing from the drinks he began to think he saw his girlfriend doing things that she was not doing. Social history the patient was a twin born to his parents who split up shortly after his is [place] sister of sudden infant syndrome. He has an older sister. When his parents split up his dad simply was not involved mom tried to raise them she did remarry when he was 12 there is a lot of alcohol and mom and that side of the family. Patient has 3 children 2 was 1 young lady is still involved with them another was another young lady that will not let him see them and now his girlfriend is with twins. For and early development far as he knows it was okay. He dropped out of school in 11th grade no he had owns his own house at this point. Diagnosis attention deficit hyperactivity disorder inattentive type, bipolar 2, polysubstance use disorder Plan I think he needs some Wellbutrin for the depression and for the low dopamine and for the ADHD. he needs something for the fluctuant moods so we are going to try increasing the Seroquel to 200 tonight and possibly 300 tomorrow if he doesn't tolerate that we'll try something less sedating to stabilize moods. The patient does need to be in the hospital his life is falling apart he is depressed and even if not actively suicidal could easily go over the edge and he needs to get on some medicine or is going to trash his relationship and his work
[2022-10-04] MEDS: NICOTINE GUM (POLACRILEX) 2 MG GUM BUCCAL PRN (17:10)
[2022-10-04 19:04] LABS: Appearance,Urine Cloudy (Clear); Bilirubin,Urine Negative (Negative); Blood,Urine Negative (Negative); Calcium Oxalate Crystals,Urine Many /hpf; Color,Urine Red; Glucose,Urine (UA) Negative (Negative); Ketones,Urine Negative (Negative); Leukocyte Esterase,Urine Negative (Negative); Mucus,Urine Few /hpf; Nitrite,Urine Negative (Negative); Protein,Urine Trace (Negative); RBC,Urine 12 /hpf (0-5); Specific Gravity,Urine 1.035 (1.001-1.035); Squamous Epithelial Cell,Urine <1 /hpf (0-4); Urobilinogen,Urine <2.0 mg/dL (<2.0)
[2022-10-04] MEDS ORDERED: QUEtiapine 200 MG TAB PO SCH (21:00)
[2022-10-05] MEDS: buPROPion XL 150 MG TAB.ER.24H PO SCH (08:28)
[2022-10-05] MEDS: NICOTINE 21MG/24HR PATCH TRANSDERM SCH (08:28)
[2022-10-05] MEDS: NICOTINE GUM (POLACRILEX) 2 MG GUM BUCCAL PRN ×4 (08:30→20:56)
[2022-10-05] MEDS: LORazepam 1 MG TAB PO PRN ×3 (08:31→20:55)
[2022-10-05 08:33] VITALS: RESP 16; TEMP 98.1
[2022-10-05 12:48] LABS: Basophils # (A) 0.1 k/uL (0-0.2); Basophils % (A) 1 %; Eosinophils # (A) 0.1 k/uL (0-0.7); Eosinophils % (A) 1 %; HCT 46.1 % (39.0-53.0); HGB 15.7 gm/dL (13.0-17.5); Lymphocytes # (A) 1.4 k/uL (1.0-4.8); Lymphocytes % (A) 20 %; MCH 32.6 pg (25.0-35.0); MCHC 34.1 g/dL (31.0-37.0); MCV 95.7 fL (80.0-100.0); Mean Platelet Volume 7.3; Monocytes # (A) 0.4 k/uL (0-1.0); Monocytes % (A) 5 %; Neutrophils # (A) 5.2 k/uL (1.3-7.7); Neutrophils % (A) 73 %; Platelet Count 245 k/uL (150-450); RBC 4.82 m/uL (4.30-5.90); RDW 12.4 % (11.5-15.5); WBC 7.1 k/uL (3.8-10.6)
[2022-10-05 13:19] LABS: ALT 34 U/L (4-49); AST 55 U/L (17-59); African American GFR (CKD) >90 (>60 ml/min/1.73 sqM); Albumin 4.6 g/dL (3.5-5.0); Alkaline Phosphatase 79 U/L (38-126); Anion Gap 7 mmol/L; Blood Urea Nitrogen 12 mg/dL (9-20); Calcium 9.6 mg/dL (8.4-10.2); Carbon Dioxide 24 mmol/L (22-30); Chloride 107 mmol/L (98-107); Glucose 97 mg/dL (74-99); Non-African American GFR(CKD) >90 (>60 ml/min/1.73 sqM); Potassium 4.7 mmol/L (3.5-5.1); Sodium 138 mmol/L (137-145); Total Bilirubin 0.6 mg/dL (0.2-1.3); Total Protein 7.3 g/dL (6.3-8.2)
--- NOTE | 2022-10-05 14:15 | P.PN ---
Subjective Progress Note Date: 10/05/22 Principal diagnosis: Attention deficit hyperactivity disorder inattentive type, bipolar 2, polysubstance use disorder 31-year-old male who presents to the emergency department reporting depression. States he's been extremely stressed recently and has thoughts of harming himse lf. He took 200 of Seroquel last night having reported that Seroquel 50 worked well and hoping that the increased dose would be tolerated and help with mood swings. However it caused akathisia and he didn't sleep well. He wants to try the lower dose which she said did not cause that reaction he did get his Wellbutrin today and say tolerate that fine were hoping that will help with both ADHD and the fluctuant depression and if he sleeps well most small amount of Seroquel might do all right on his moods although I think he needs something stronger for agitation. Mental status exam: The patient is alert cooperative good self care good and station are normal he is oriented no signs of psychosis he says he is feeling more hopeful denies current suicidality Diagnosis attention deficit hyperactivity disorder inattentive type, bipolar 2, polysubstance use disorder Plan I think the Wellbutrin for the depression is a good idea and for his low dopamine symptoms and for the ADHD. About him back off on the Seroquel to 50 and perhaps consider shifting that to something like Trileptal or Geodon due to the akathisia The patient does need to be in the hospital his life is falling apart he is depressed and even if not actively suicidal could easily go over the edge and he needs to get on some medicine or is going to trash his relationship and his work Objective - Vital Signs Vital signs: Vital Signs Temp 98.1 F 10/05/22 08:32 Pulse 110 H 10/05/22 08:32 Resp 16 10/05/22 08:32 BP 151/69 10/05/22 08:32 Pulse Ox 98 10/04/22 03:30 FiO2 Intake & Output 10/04/22 10/05/22 10/05/22 18:59 06:59 18:59 Weight 71.1 kg - Labs CBC & Chem 7: 10/05/22 12:06 10/05/22 12:06 Labs: Abnormal Lab Results - Last 24 Hours (Table) 10/04/22 10/05/22 Range/Units 01:53 12:06 Creatinine 0.61 L (0.66-1.25) mg/dL Urine Protein Trace H (Negative) Urine RBC 12 H (0-5) /hpf Calcium Oxalate Crystal Many H (None) /hpf Urine Mucus Few H (None) /hpf
--- NOTE | 2022-10-05 14:19 | P.CONS ---
History of Present Illness - Reason for Consult Consult date: 10/05/22 - History of Present Illness Patient is a 31-year-old male with PMH of Kratom abuse, history of IV drug use, nicotine abuse presents to [facility] for mental health concerns. He has been admitted to the mental health unit for further management of his symptoms. [facility] has been consulted for medical management of this patient. He would like to be checked for hepatitis, syphilis and HIV given his history of IV drug abuse. He reports restlessness and shakiness since he drank 10-15 drinks with Kratom daily. He denies any headaches, lower extremity edema, nausea or vomiting, fever or chills, cough, chest pain, shortness of breath, palpitations, changes in urination or bowel habits. No changes in appetite or weight. He denies any dizziness, numbness/weakness/tingling of the extremities. Pertinent positives and negatives as discussed in HPI, a complete review of systems was performed and all other systems are negative. General: non toxic, no distress, appears at stated age Derm: Warm, Dry Head: atraumatic, normocephalic, symmetric Eyes: EOMI, no lid lag, anicteric sclera Cardiovascular: S1S2 reg, no murmur Lungs: CTA bilateral, no rhonchi, no rales , no accessory muscle use Abdominal: soft, nontender to palpation, no guarding, no appreciable organomegaly Ext: no gross muscle atrophy, no edema, no contractures Neuro: CN II-XI grossly intact, no focal neuro deficits Psych: Alert, oriented, appropriate affect Kratom withdrawal History of IV drug use Smoker Based on my assessment of this patient, this patient meets a moderate complexity level of care. Patient has a new diagnosis of nausea and vomiting with uncertain prognosis. His symptoms are also concerning for sleep apnea. Kratom withdrawal: Tylenol 650 mg PO Q4H PRN for pain. Ativan PRN for agitation. History of IV drug use: Test for Hepatitis, Syphilis and HIV. Smoker: Patient has been offered a nicotine patch. I have reviewed the following as400 consultant notes: Psychiatry note reviewed. I have reviewed the results of the following tests: CBC is unremarkable. CMP shows creatinine of 0.61. TSH is 0.73. Urinalysis shows trace protein, 12 RBCs, calcium oxalate crystals and few mucus. UDS positive for TCA and benzodiazepine. COVID-19 negative. I have ordered the following tests: Agree with hemoglobin A1c, lipid panel. Hepatitis panel, HIV, syphilis test ordered. I have discussed the care of this patient with the following independent historian: I have independently interpreted the following test below: I have discussed the management of this patient with the following physician: Past Medical History Past Medical History: No Reported History History of Any Multi-Drug Resistant Organisms: None Reported Past Surgical History: No Surgical Hx Reported Past Anesthesia/Blood Transfusion Reactions: No Reported Reaction Past Psychological History: No Psychological Hx Reported Smoking Status: Current every day smoker Past Alcohol Use History: None Reported Past Drug Use History: Heroin, Prescription Drug Abuse Medications and Allergies Home Medications Medication Instructions Recorded Confirmed Type No Known Home Medications 11/07/20 11/07/20 History Allergies Allergy/AdvReac Type Severity Reaction Status Date / Time No Known Allergies Allergy Verified 11/07/20 11:54 Physical Exam Vitals: Vital Signs Temp Pulse Resp BP 10/05/22 08:32 98.1 F 110 H 16 151/69 Intake and Output 10/04/22 10/05/22 10/05/22 22:59 06:59 14:59 Other: Weight 71.1 kg Results CBC & Chem 7: 10/05/22 12:06 10/05/22 12:06 Labs: Abnormal Lab Results - Last 24 Hours (Table) 10/04/22 10/05/22 Range/Units 01:53 12:06 Creatinine 0.61 L (0.66-1.25) mg/dL Urine Protein Trace H (Negative) Urine RBC 12 H (0-5) /hpf Calcium Oxalate Crystal Many H (None) /hpf Urine Mucus Few H (None) /hpf
[2022-10-05] MEDS ORDERED: QUEtiapine 50 MG TAB PO SCH (21:00)
[2022-10-06 06:10] LABS: Chol/HDL Ratio 3.16 Ratio; LDL Cholesterol,Calculated 134.3 mg/dL (0.0-131.0)
[2022-10-06 06:52] VITALS: BP 123/59; PULSE 72
[2022-10-06] MEDS: buPROPion XL 150 MG TAB.ER.24H PO SCH (08:05)
[2022-10-06] MEDS: NICOTINE 21MG/24HR PATCH TRANSDERM SCH (08:06)
--- NOTE | 2022-10-06 11:07 | P.DS ---
Providers Date of admission: 10/04/22 02:30 Expected date of discharge: 10/06/22 Attending physician: Mynor Bonilla MD Consults: 10/04/22 01:46 Consult Physician Routine Consulting Provider: [facility] Consult Reason/Comments: h and p Do you want consulting provider notified?: Yes, Notify in am Primary care physician: Stated None - Discharge Diagnosis(es) (1) Bipolar II disorder, most recent episode hypomanic Current Visit: Yes Status: Acute Priority: High (2) Substance induced mood disorder Current Visit: Yes Status: Acute Priority: High (3) Other psychoactive substance abuse with unspecified psychoactive substance- induced disorder Current Visit: Yes Status: Acute Priority: High Hospital Course: Admission HPI: Initial psychiatric evaluation was completed by Dr. Downs on 10/04/2022 who wrote: "31-year-old male who presents to the emergency department reporting depression. States he's been extremely stressed recently and has thoughts of harming himself. States that he would do it in any way possible which includes walking into traffic or hanging himself. Denies attempting suicide. In fact he tells me that he just needed help real bad he knew he had to say he was suicidal in order to get it Denies current drug or alcohol use. No hallucinations. No homicidal ideations. No other alleviating, precipitating or modifying factors. History of present illness the patient has had trouble with ADHD his whole life and was treated with stimulants however when he was given Concerta it caused him to hyperfocus and loses personality and feel empty, so he doesn't like those kind of medicines. His whole life he has had to push himself to do things and he discovered that when he drank alcohol that made him feel a lot better and then he graduated to heroin and crystal meth. 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 He notices that he goes from doing a fabulous job and getting a whole bunch done and then crashing into periods of time where he can hardly get out of bed and doesn't do anything at all. He is about to lose his business. He took up drinking some sort of an energy drink that when he talks he got hypomanic and he could function well. But he was up using 10 a day at $10 each and decided to back off and found that he couldn't and went into withdrawal. He then started to aid himself decided maybe just walk out into traffic or hang himself. He has tried Seroquel although is never been prescribed his girlfriend hadn't and when he takes he has no bad side effects and does help him calm down his racing thoughts and sleep. Mental status exam: The patient could remember only 2 of 3 objects after 3 minutes his mind gets racing and hits often other directions when you ask him to do a task. He could name the last 4 presidents and 3 of [place]. He could spell world backward and subtract 7 from 93. He abstracted the cats and snakes eat rodents but then could not think of anything else similar. For the grass looks screen and outside offense he said you should see what you have. He denies any psychotic symptoms except when he does withdrawing from the drinks he began to think he saw his girlfriend doing things that she was not doing. Social history the patient was a twin born to his parents who split up shortly after his is [place] sister of sudden syndrome. He has an older sister. When his parents split up his dad simply was not involved mom tried to raise them she did remarry when he was 12 there is a lot of alcohol and mom and that side of the family. Patient has 3 children 2 was 1 young lady is still involved with them another was another young lady that will not let him see them and now his girlfriend is with twins. For and early development far as he knows it was okay. He dropped out of school in 11th grade no he had owns his own house at this point. Hospital course: Upon admission to the unit patient was initially noted to be cooperative and polite. Patient was directable and agreeable to commence treatment. Patient got along well with other patients on the unit and followed unit protocol. Patient was compliant with the medications and denied any side effects throughout hospital course. Patient was started on seroquel and wellbutrin for the additional benefit of addressing focus issues and sleep alongside depression. Patient spoke of his stressors and engaged in therapy both group and individual. Patient was also seen by medical team for history and physical exam. Throughout the course of the hospitalization patient gradually improved with regards to mood, focus, sleep and became future oriented with improved insight and judgment. On the day of discharge patient denied suicidal or homicidal ideation, intention, and/or plan. He ordered no auditory or visual hallucinations. Patient endorsed wanting to live for his health and family. The patient denied any access to guns or weapons. Patient denied any paranoia and did not endorse any delusions. Patient does have a significant history of substance abuse however was counseled on abstaining from all substances including alcohol, tobacco, marijuana, and all illicit drugs. He even focused on other substances of abuse including kratom, kava, and caffeine. Patient was offered however declined inpatient substance-abuse rehab. Patient was also counseled on the medications and need for regular compliance and was encouraged to follow-up with their outpatient appointment for mental health and also for primary care. Prior to discharge a family meeting will be arranged by transition social worker to answer any questions and ensure safety upon discharge. Mental status exam: General Appearance: Patient appears to be stated age is alert, pleasant, and cooperative. Patient is in no acute distress and has fair hygiene and grooming Behavior: Patient is calmly seated without any agitated behavior. Speech: Patient's speech is fluent and nonpressured. Mood/Affect: Patient reports their mood is "much better", affect is congruent and euthymic to bright. Suicidality/Homicidality: Patient denies having any suicidal or homicidal ideation intent or plan. Perceptions: Patient denies any auditory or visual hallucinations. Though content/process: There is no evidence of any delusional thought content and thought process is linear and goal-directed. Future and goal oriented. Memory and concentration: AOX3, grossly intact for the purposes of this session. Can spell "WORLD" backwards correctly. Judgment and insight: Improved with guarded prognosis Impression: Bipolar 2 disorder, hypomanic episode Substance-induced mood disorder Other psychoactive substance abuse Plan: -Continue with discharge today as patient has improved and stabilized psychiatrically and is not currently an imminent threat to himsel and/or others. Patient has protective factors including future and goal orientation, duty to family, and stable job. This practice include history of polysubstance abuse. -Continue medications: Seroquel 50 mg at bedtime for insomnia/mood stability Wellbutrin XL 150 mg daily for depression/ADHD -Patient was counseled on the need for medication compliance and appropriate follow-up at mental health and also primary care for medical issues. Patient verbalized understanding and agreed. -Social work to arrange for and conduct family meeting to ensure safety upon discharge and answer any questions/concerns. Social work also to arrange for patients follow up appointments for psychiatric care along with follow up with primary care provider. -Patient counseled on abstaining from recreational drugs and marijuana and alcohol. Was informed/educated on the adverse effects on their physical and mental health. Patient verbally agreed and understood. -Patient was instructed to return to the hospital or seek immediate medical care if their psychiatric or medical symptoms do worsen or reoccur. -Psychoeducation and supportive therapy provided to patient. Risks and benefits of pharmacological treatment versus the risks and benefits of nontreatment weighed and discussed. Informed consent discussion held. Common side effects of psychotropics discussed such as, but not limited to headache, GI disturbance, sexual dysfunction, movement disorders, sedation, and orthostatic hypotension. Life threatening and blackbox warnings of prescribed medications also discussed. Potential risks of operating a vehicle or heavy machinery discussed with patient at length. Advised on importance of compliance and a reliable and responsible manner. Patient advised to review FDA consumer labeling of all medications prior to taking. Patient verbalized understanding of potential risk s, and agrees with current treatment plan. Patient advised to medically contact physician/emergency personnel if any acute changes in condition occur. Vital Signs Temp 98.1 F 10/05/22 08:32 Pulse 72 10/06/22 06:51 Resp 16 10/06/22 06:51 BP 123/59 10/06/22 06:51 Pulse Ox 99 10/06/22 06:51 FiO2 Intake & Output 10/05/22 10/06/22 10/06/22 18:59 06:59 18:59 Weight 71.1 kg Laboratory Results WBC 7.1 k/uL (3.8-10.6) 10/05/22 12:06 RBC 4.82 m/uL (4.30-5.90) 10/05/22 12:06 Hgb 15.7 gm/dL (13.0-17.5) 10/05/22 12:06 Hct 46.1 % (39.0-53.0) 10/05/22 12:06 MCV 95.7 fL (80.0-100.0) 10/05/22 12:06 MCH 32.6 pg (25.0-35.0) 10/05/22 12:06 MCHC 34.1 g/dL (31.0-37.0) 10/05/22 12:06 RDW 12.4 % (11.5-15.5) 10/05/22 12:06 Plt Count 245 k/uL (150-450) 10/05/22 12:06 MPV 7.3 10/05/22 12:06 Neutrophils % 73 % 10/05/22 12:06 Lymphocytes % 20 % 10/05/22 12:06 Monocytes % 5 % 10/05/22 12:06 Eosinophils % 1 % 10/05/22 12:06 Basophils % 1 % 10/05/22 12:06 Neutrophils # 5.2 k/uL (1.3-7.7) 10/05/22 12:06 Lymphocytes # 1.4 k/uL (1.0-4.8) 10/05/22 12:06 Monocytes # 0.4 k/uL (0-1.0) 10/05/22 12:06 Eosinophils # 0.1 k/uL (0-0.7) 10/05/22 12:06 Basophils # 0.1 k/uL (0-0.2) 10/05/22 12:06 Sodium 138 mmol/L (137-145) 10/05/22 12:06 Potassium 4.7 mmol/L (3.5-5.1) 10/05/22 12:06 Chloride 107 mmol/L (98-107) 10/05/22 12:06 Carbon Dioxide 24 mmol/L (22-30) 10/05/22 12:06 Anion Gap 7 mmol/L 10/05/22 12:06 BUN 12 mg/dL (9-20) 10/05/22 12:06 Creatinine 0.61 mg/dL (0.66-1.25) L 10/05/22 12:06 Est GFR (CKD-EPI)AfAm >90 (>60 ml/min/1.73 sqM) 10/05/22 12:06 Est GFR (CKD-EPI)NonAf >90 (>60 ml/min/1.73 sqM) 10/05/22 12:06 Glucose 97 mg/dL (74-99) 10/05/22 12:[address] Glu mg/dL 94 mg/dL 10/05/22 12:06 Hemoglobin A1c 4.9 % (<=6.0) 10/05/22 12:06 Calcium 9.6 mg/dL (8.4-10.2) 10/05/22 12:06 Total Bilirubin 0.6 mg/dL (0.2-1.3) 10/05/22 12:06 AST 55 U/L (17-59) 10/05/22 12:06 ALT 34 U/L (4-49) 10/05/22 12:06 Alkaline Phosphatase 79 U/L (38-126) 10/05/22 12:06 Total Protein 7.3 g/dL (6.3-8.2) 10/05/22 12:06 Albumin 4.6 g/dL (3.5-5.0) 10/05/22 12:06 Triglycerides 179.00 mg/dL (0.00-149.00) H 10/05/22 12:06 Cholesterol 249.00 mg/dL (0.00-200.00) H 10/05/22 12:06 LDL Cholesterol, Calc 134.3 mg/dL (0.0-131.0) H 10/05/22 12:06 VLDL Cholesterol, Calc 35.80 mg/dL (5.00-40.00) 10/05/22 12:06 HDL Cholesterol 78.90 mg/dL (40.00-60.00) H 10/05/22 12:06 Cholesterol/HDL Ratio 3.16 Ratio 10/05/22 12:06 TSH 0.730 mIU/L (0.465-4.680) 10/05/22 12:06 Urine Color Red 10/04/22 01:53 Urine Appearance Cloudy (Clear) 10/04/22 01:53 Urine pH 7.0 (5.0-8.0) 10/04/22 01:53 Ur Specific [place] 1.035 (1.001-1.035) 10/04/22 01:53 Urine Protein Trace (Negative) H 10/04/22 01:53 Urine Glucose (UA) Negative (Negative) 10/04/22 01:53 Urine Ketones Negative (Negative) 10/04/22 01:53 Urine Blood Negative (Negative) 10/04/22 01:53 Urine Nitrite Negative (Negative) 10/04/22 01:53 Urine Bilirubin Negative (Negative) 10/04/22 01:53 Urine Urobilinogen <2.0 mg/dL (<2.0) 10/04/22 01:53 Ur Leukocyte Esterase Negative (Negative) 10/04/22 01:53 Urine RBC 12 /hpf (0-5) H 10/04/22 01:53 Ur Squamous Epith Cells <1 /hpf (0-4) 10/04/22 01:53 Calcium Oxalate Crystal Many /hpf (None) H 10/04/22 01:53 Urine Mucus Few /hpf (None) H 10/04/22 01:53 Urine Opiates Screen Not Detected (NotDetected) 10/04/22 01:17 Ur Oxycodone Screen Not Detected (NotDetected) 10/04/22 01:17 Urine Methadone Screen Not Detected (NotDetected) 10/04/22 01:17 Ur Propoxyphene Screen Not Detected (NotDetected) 10/04/22 01:17 Ur Barbiturates Screen Not Detected (NotDetected) 10/04/22 01:17 U Tricyclic Antidepress Detected (NotDetected) H 10/04/22 01:17 Ur Phencyclidine Scrn Not Detected (NotDetected) 10/04/22 01:17 Ur Amphetamines Screen Not Detected (NotDetected) 10/04/22 01:17 U Methamphetamines Scrn Not Detected (NotDetected) 10/04/22 01:17 U Benzodiazepines Scrn Detected (NotDetected) H 10/04/22 01:17 Urine Cocaine Screen Not Detected (NotDetected) 10/04/22 01:17 U Marijuana (THC) Screen Not Detected (NotDetected) 10/04/22 01:17 Coronavirus (PCR) Not Detected (Not Detectd) 10/04/22 01:13 Allergies Allergy/AdvReac Type Severity Reaction Status Date / Time No Known Allergies Allergy Verified 11/07/20 11:54 Patient Condition at Discharge: Stable Plan - Discharge Summary Discharge Rx Participant: Yes New Discharge Prescriptions: New QUEtiapine [SEROquel] 50 mg PO HS 30 Days #30 tab buPROPion XL [Wellbutrin XL] 150 mg PO DAILY 30 Days #30 tab Discharge Medication List QUEtiapine [SEROquel] 50 mg PO HS 30 Days #30 tab 10/06/22 [Rx] buPROPion XL [Wellbutrin XL] 150 mg PO DAILY 30 Days #30 tab 10/06/22 [Rx] Follow up Appointment(s)/Referral(s): [facility] - 1 Week Patient Instructions/Handouts: Depression (DC) Activity/Diet/Wound Care/Special Instructions: Avoid the use of street drugs and alcohol. Take all medications as prescribed. When you are in need of refills on your medications, please contact your medical provider and/or outpatient psychiatrist/provider to have this done. Please go to your scheduled outpatient appointment for aftercare treatment. If symptoms return or become worse, call the crisis line at and/or go to the nearest emergency room for evaluation. National Suicide Hotline 676. Discharge Disposition: HOME SELF-CARE
[2022-10-06] MEDS: LORazepam 1 MG TAB PO PRN (12:08)
[2022-10-06] MEDS: NICOTINE GUM (POLACRILEX) 2 MG GUM BUCCAL PRN (12:08)
[2022-10-06 12:23] LABS: Hepatitis C IgG Antibody Reactive (Non-Reactive)
[2022-10-06 13:25] LABS: Hepatitis A Antibody IgM Nonreactive; Hepatitis B Core IgM Nonreactive; Hepatitis B Surface Antigen Nonreactive
[2022-10-06 17:34] LABS: HIV 2 AB Non-Reactive (Non-Reactive); HIV AB P24 Non-Reactive (Non-Reactive); HIV P24 AG Non-Reactive (Non-Reactive)
== END 2022-10-06 13:25 | disposition home or self-care (01) | DRG 753 ==
LOC: EC 22:48 → 3MHU 10-04 02:30
PROVIDERS: ADMIT Psychiatry & Neurology Psychiatry; ATTEND Psychiatry & Neurology Psychiatry
DX: F31.0 Bipolar disorder, current episode hypomanic (principal); Z81.1 Family history of alcohol abuse and dependence; Z20.822 Contact with and (suspected) exposure to COVID-19; Z28.310 Unvaccinated for COVID-19; F11.13 Opioid abuse with withdrawal; F11.14 Opioid abuse with opioid-induced mood disorder; Z28.21 Immunization not carried out because of patient refusal; G47.30 Sleep apnea, unspecified; F17.210 Nicotine dependence, cigarettes, uncomplicated; F90.0 Attention-deficit hyperactivity disorder, predominantly inattentive type; Z84.82 Family history of sudden infant death syndrome; Z79.899 Other long term (current) drug therapy; Z71.51 Drug abuse counseling and surveillance of drug abuser; F15.10 Other stimulant abuse, uncomplicated
CPT/HCPCS: 80053; 80061; 80074; 80306; 81001; 82075; 83036; 84443; 85025; 86780; 87390; 87635; 99285

== ENCOUNTER 2023-02-17 14:24 | Emergency (ER) | payer OTHER ==
--- NOTE | 2023-02-17 15:38 | CT ---
EXAMINATION TYPE: CT brain wo con DATE OF EXAM: 02/17/2023 COMPARISON: 12/24/2018 HISTORY: 32-year-old male Migraine x2wks. Nausea, dizziness, blurred vision. TECHNIQUE: Examination was done in axial plane without intravenous contrast. Coronal and sagittal r econstructions performed. CT DLP: 1164.4 mGycm Automated exposure control for dose reduction was used. FINDINGS: There is no evidence of acute intracranial hemorrhage, acute ischemic changes, mass, mass-effect, or extra-axial fluid collection. There is no effacement of cerebral sulci or basal subarachnoid cister ns. There is no hydrocephalus. There is no midline shift. Szymanski-white matter distinction is preserv ed. Leftward nasal septal deviation. Lobulated mucosal thickening floor of the left maxillary sinus. Mastoid air cells are well pneumatize d. Orbits and globes are intact. IMPRESSION: No acute intracranial abnormality seen.
[2023-02-17] MEDS ORDERED: dexAMETHasone 2 MG TAB PO STA (16:09)
[2023-02-17] MEDS ORDERED: diphenhydrAMINE 50 MG CAP PO STA (16:09)
[2023-02-17] MEDS ORDERED: ONDANSETRON 4 MG ODT STARTER PACK 2 TAB BTL PO STA (16:10)
[2023-02-17] MEDS ORDERED: KETOROLAC 15 MG/ML 1 ML VIAL IM STA (16:10)
[2023-02-17] MEDS ORDERED: IBUPROFEN 600 MG STARTER PACK 4 TAB BTL PO STA (16:10)
[2023-02-17] MEDS ORDERED: traMADol 50 MG STARTER PACK 3 TAB BTL PO STA (16:10)
[2023-02-17] MEDS ORDERED: PROCHLORPERAZINE 10 MG TAB PO STA (16:11)
--- NOTE | 2023-02-17 16:11 | ED ---
Headache HPI - General Chief Complaint: Recheck/Abnormal Lab/Rx Stated Complaint: Migraine,Blurried Vision Time Seen by Provider: 02/17/23 15:54 Source: RN notes reviewed, old records reviewed Mode of arrival: ambulatory Limitations: no limitations - History of Present Illness Initial Comments: This is a 32-year-old male to the emergency department for evaluation. Patient has no known specific or significant medical history no recent trauma fevers cough or congestion coming in for evaluation of headache. A formal diagnosis of headaches no prior visits for headaches. Patient is headaches for a few days to a few weeks now does seem to come ago would've been progressively getting worse prompting evaluation today. He has nausea no vomiting for revision just noticed today. No treatment for headache at home MD Complaint: headache, "migraine" (Patient believes this is a migraine headache) -: week(s) Onset Description: gradual Location: frontal, temporal Severity: moderate Severity scale (1-10): 4 Quality: throbbing, pulsatile Consistency: constant, intermittent Improves With: nothing Worsens With: none Associated Symptoms: nausea, other (Blurry vision) Treatments Prior to Arrival: none - Related Data Previous Rx's Medication Instructions Recorded QUEtiapine [SEROquel] 50 mg PO HS 30 Days #30 tab 10/06/22 buPROPion XL [Wellbutrin XL] 150 mg PO DAILY 30 Days #30 tab 10/06/22 Allergies Allergy/AdvReac Type Severity Reaction Status Date / Time No Known Allergies Allergy Verified 02/17/23 14:31 Review of Systems ROS Statement: Those systems with pertinent positive or pertinent negative responses have been documented in the HPI. ROS Other: All systems not noted in ROS Statement are negative. Past Medical History Past Medical History: No Reported History History of Any Multi-Drug Resistant Organisms: None Reported Past Surgical History: No Surgical Hx Reported Past Anesthesia/Blood Transfusion Reactions: No Reported Reaction Past Psychological History: No Psychological Hx Reported Smoking Status: Current every day smoker, Vaper Past Alcohol Use History: None Reported Past Drug Use History: Heroin, Prescription Drug Abuse General Exam Limitations: no limitations General appearance: alert, in no apparent distress Head exam: Present: atraumatic, normocephalic, normal inspection Eye exam: Present: normal appearance, PERRL, EOMI. Absent: scleral icterus, conjunctival injection, periorbital swelling ENT exam: Present: normal exam, mucous membranes moist Neck exam: Present: normal inspection. Absent: tenderness, meningismus, lymphadenopathy Respiratory exam: Present: normal lung sounds bilaterally. Absent: respiratory distress, wheezes, rales, rhonchi, stridor Cardiovascular Exam: Present: regular rate, normal rhythm, normal heart sounds. Absent: systolic murmur, diastolic murmur, rubs, gallop, clicks GI/Abdominal exam: Present: soft, normal bowel sounds. Absent: distended, tenderness, guarding, rebound, rigid Extremities exam: Present: normal inspection, full ROM, normal capillary refill. Absent: tenderness, pedal edema, joint swelling, calf tenderness Back exam: Present: normal inspection Neurological exam: Present: alert, oriented X3, CN II-XII intact Psychiatric exam: Present: normal affect, normal mood Skin exam: Present: warm, dry, intact, normal color. Absent: rash Course Vital Signs 02/17/23 02/17/23 14:29 16:33 Temperature 98 F 97.9 F Pulse Rate 84 78 Respiratory 18 16 Rate Blood Pressure 148/89 136/89 O2 Sat by Pulse 100 98 Oximetry - Reevaluation(s) Reevaluation #1: Medical record is reviewed Reevaluation #2: Patient's headache is resolved is without neurological deficit Reevaluation #3: Patient is informed of results and questions answered Reevaluation #4: Was pt. sent in by a medical professional or institution (Dr. PA, [employer], urgent care, hospital, or [facility]...) When possible be specific @ -He has suffered from urgent care for further evaluation of severe headache with blurry vision Did you speak to anyone other than the patient for history (EMS, parent, family, police, friend...)? What history was obtained from this source @ -no Did you review nursing and triage notes (agree or disagree)? Why? @ -agree Are old charts reviewed (outside hosp., previous admission, EMS record, old EKG, old radiological studies, urgent care reports/EKG's, [facility] records)? Report findings @ -yes Differential Diagnosis (chest pain, altered mental status, abdominal pain women, abdominal pain men, vaginal bleeding, weakness, fever, dyspnea, syncope, headache, dizziness, GI bleed, back pain, seizure, CVA, palpatations, mental health, musculoskeletal)? @ -prior EKG interpreted by me (3pts min.). @ -no X-rays interpreted by me (1pt min.). @ -no CT interpreted by me (1pt min.). @ -yes negative for acute disease U/S interpreted by me (1pt. min.). @ -no What testing was considered but not performed or refused? (CT, X-rays, U/S, labs)? Why? @ -none What meds were considered but not given or refused? Why? @ -none Did you discuss the management of the patient with other professionals (professionals i.e. DrCinthia, PA, [employer], lab, RT, psych nurse, social services analyst, regional controller, teacher, transit police officer, director of casework)? Give summary @ -no Was smoking cessation discussed for >3mins.? @ -no Was critical care preformed (if so, how long)? @ -no Were there social determinants of health that impacted care today? How? (Homelessness, low income, unemployed, alcoholism, drug addiction, transportation, low edu. Level, literacy, decrease access to med. care, retirement, rehab)? @ -none Was there de-escalation of care discussed even if they declined (Discuss DNR or withdrawal of care, Hospice)? DNR status @ -no What co-morbidities impacted this encounter? (DM, HTN, Smoking, COPD, CAD, Cancer, CVA, ARF, Chemo, Hep., AIDS, mental health diagnosis, sleep apnea, morbid obesity)? @ -none Was patient admitted / discharged? Hospital course, mention meds given and route, prescriptions, significant lab abnormalities, going to OR and other pertinent info. @ - 32-year-old male to the ER for evaluation sent by urgent care for evaluation of migraine-type headache. Patient has no underlying known history of migraine headaches and presenting for first headache here in the ER, symptoms for a few days to weeks now persistent with nausea blurry vision today. Patient has normal computed tomography scan testing and improved headache with treatment here in the urine can be discharged home Discharge Undiagnosed new problem with uncertain prognosis? @ -no Drug Therapy requiring intensive monitoring for toxicity (Heparin, Nitro, Insulin, Cardizem)? @ -no Were any procedures done? @ -no Diagnosis/symptom? @ -Headache, migraine headache Acute, or Chronic, or Acute on Chronic? @ -Acute Uncomplicated (without systemic symptoms) or Complicated (systemic symptoms)? @ -Complicated Side effects of treatment? @ -no Exacerbation, Progression, or Severe Exacerbation? @ -exacerbation Poses a threat to life or bodily function? How? (Chest pain, [place], [place], pneumonia, PE, COPD, DKA, ARF, appy, cholecystitis, CVA, Diverticulitis, Homicidal, Suicidal, threat to staff... and all critical care pts) @ -yes multiple causes of headache be life-threatening Reevaluation #5: Differential Weakness: Hypoglycemia, shock, sepsis, hyponatremia, anemia, infection, [place], ETOH, adverse medicine reaction, overdose, stroke, this is not meant to be an all-inclusive list. Medical Decision Making - Medical Decision Making 32-year-old male to the ER for evaluation sent by urgent care for evaluation of migraine-type headache. Patient has no underlying known history of migraine headaches and presenting for first headache here in the ER, symptoms for a few days to weeks now persistent with nausea blurry vision today. Patient has normal computed tomography scan testing and improved headache with treatment here in the urine can be discharged home - Radiology Data Radiology results: report reviewed (CT brain is negative for acute disease), image reviewed Disposition Clinical Impression: Headache, Migraine headache Disposition: HOME SELF-CARE Condition: Good Instructions (If sedation given, give patient instructions): Migraine Headache (ED), Acute Headache (ED) Is patient prescribed a controlled substance at d/c from ED?: No Referrals: None,Stated [Primary Care Provider] - 1-2 days Time of Disposition: 16:10
[2023-02-17 16:55] VITALS: BP 136/89; PULSE 78; RESP 16; TEMP 97.9
== END 2023-02-17 19:35 | disposition home or self-care (01) ==
LOC: EC 14:24
DX: G43.909 Migraine, unspecified, not intractable, without status migrainosus (principal); F17.290 Nicotine dependence, other tobacco product, uncomplicated; F15.90 Other stimulant use, unspecified, uncomplicated
CPT/HCPCS: 70450; 99284; 96372; S0183; J8540; J1885; S0119

== ENCOUNTER 2024-05-06 12:23 | Emergency (ER) | payer OTHER ==
--- NOTE | 2024-05-06 13:33 | ED ---
General Adult HPI - General Chief complaint: Headache Stated complaint: headache Time Seen by Provider: 05/06/24 13:01 Source: patient Mode of arrival: ambulatory Limitations: no limitations - History of Present Illness Initial comments: Dictation was produced using [employer] dictation software. please excuse any grammatical, word or spelling errors. Chief Complaint: 33-year-old male with headache History of Present Illness: Patient 33-year-old male with no significant comorbidities presents emergency department headache. Patient said he has had headache daily for approximately 3 months. States that it is bitemporal. States it is worse in the morning and sometimes at night. He has been taking Excedrin to try and help with symptoms. Denies any vision changes. No nausea vomiting. Any neurologic deficits. The ROS documented in this emergency department record has been reviewed and confirmed by me. Those systems with pertinent positive or negative responses have been documented in the HPI. All other systems are other negative and/or noncontributory. - Related Data Previous Rx's Medication Instructions Recorded QUEtiapine [SEROquel] 50 mg PO HS 30 Days #30 tab 10/06/22 buPROPion XL [Wellbutrin XL] 150 mg PO DAILY 30 Days #30 tab 10/06/22 Allergies Allergy/AdvReac Type Severity Reaction Status Date / Time No Known Allergies Allergy Verified 05/06/24 12:34 Review of Systems ROS Statement: Those systems with pertinent positive or pertinent negative responses have been documented in the HPI. ROS Other: All systems not noted in ROS Statement are negative. Past Medical History Past Medical History: No Reported History History of Any Multi-Drug Resistant Organisms: None Reported Past Surgical History: No Surgical Hx Reported Past Anesthesia/Blood Transfusion Reactions: No Reported Reaction Past Psychological History: No Psychological Hx Reported Smoking Status: Current every day smoker, Vaper Past Alcohol Use History: None Reported Past Drug Use History: Heroin, Prescription Drug Abuse General Exam - General Exam Comments Initial Comments: PHYSICAL EXAM: General Impression: Alert and oriented x3, not in acute distress HEENT: Normocephalic atraumatic, extra-ocular movements intact, pupils equal and reactive to light bilaterally, mucous membranes moist. Cardiovascular: Heart regular rate and rhythm Chest: Able to complete full sentences, no retractions, no tachypnea Abdomen: abdomen soft, non-tender, non-distended, no organomegaly Musculoskeletal: Pulses present and equal in all extremities, no peripheral edema Motor: no focal deficits noted Neurological: CN II-XII grossly intact, no focal motor or sensory deficits noted Skin: Intact with no visualized rashes Psych: Normal affect and mood Limitations: no limitations Course Vital Signs 05/06/24 05/06/24 12:33 14:13 Temperature 98.1 F 98.6 F Pulse Rate 96 72 Respiratory 20 18 Rate Blood Pressure 116/75 132/86 O2 Sat by Pulse 99 100 Oximetry Medical Decision Making - Medical Decision Making Was pt. sent in by a medical professional or institution (, PA, [employer], urgent care, hospital, or custodial...) When possible be specific @ -No Did you speak to anyone other than the patient for history (EMS, parent, family, police, friend...)? What history was obtained from this source @ -No Did you review nursing and triage notes (agree or disagree)? Why? @ -I reviewed and agree with nursing and triage notes Were old charts reviewed (outside hosp., previous admission, EMS record, old EKG, old radiological studies, urgent care reports/EKG's, custodial records)? Report findings @ -No old charts were reviewed Differential Diagnosis (chest pain, altered mental status, abdominal pain women, abdominal pain men, vaginal bleeding, musculoskeletal, weakness, fever, dyspnea, syncope, headache, dizziness, GI bleed, back pain, seizure, CVA, palpatations, mental health)? @ -Differential Headache: Migraine, tension, cluster, carbon monoxide, central venous thrombosis, pension karma temporal arteritis, acute closure glaucoma, intercranial hemorrhage, mastoiditis, sinusitis, head injury, this is not meant to be an all-inclusive list. EKG interpreted by me (3pts min.). @ -None done X-rays interpreted by me (1pt min.). @ -None done CT interpreted by me (1pt min.). @ -CT brain shows no acute processes U/S interpreted by me (1pt. min.). @ -None done What testing was considered but not performed or refused? (CT, X-rays, U/S, labs)? Why? @ -None What meds were considered but not given or refused? Why? @ -None Was smoking cessation discussed for >3mins.? @ -No Were there social determinants of health that impacted care today? How? (Homelessness, low income, unemployed, alcoholism, drug addiction, transportation, low edu. Level, literacy, decrease access to med. care, [facility], rehab)? @ -No Was there de-escalation of care discussed even if they declined (Discuss DNR or withdrawal of care, Hospice)? DNR status @ -No What co-morbidities impacted this encounter? (DM, HTN, Smoking, COPD, CAD, Cancer, CVA, ARF, Chemo, Hep., AIDS, mental health diagnosis, sleep apnea, morbid obesity)? @ -None Was patient admitted / discharged? Hospital course, mention meds given and route, prescriptions, significant lab abnormalities, going to OR and other pertinent info. @ -33-year-old male with chronic headache. Vital signs stable. Physical examination is benign. HPI is suspicious for intracranial mass. CT brain is nonacute. Patient given headache cocktail with improvement of symptoms. Discharged with follow-up with primary care doctor and/or neurologist. Did you discuss the management of the patient with other professionals ( professionals i.e. , PA, [employer], lab, RT, psych nurse, child welfare social worker, software engineer developer, teacher, stream control officer, case technician)? Give summary @ -No Was critical care preformed (if so, how long)? @ -No Undiagnosed new problem with uncertain prognosis? @ -No Drug Therapy requiring intensive monitoring for toxicity (Heparin, Nitro, Insulin, Cardizem)? @ -No Were any procedures done? @ -No Diagnosis/symptom? Acute, or Chronic, or Acute on Chronic? Uncomplicated (without systemic symptoms) or Complicated (systemic symptoms)? @ -Chronic headache Side effects of treatment? @ -No Exacerbation, Progression, or Severe Exacerbation? @ -No Poses a threat to life or bodily function? How? (Chest pain, [place], [place], pneumonia, PE, COPD, DKA, ARF, appy, cholecystitis, CVA, Diverticulitis, Homicidal, Suicidal, threat to staff... and all critical care pts) @ -No - Lab Data Result diagrams: 05/06/24 13:59 05/06/24 13:59 Lab Results 05/06/24 05/06/24 Range/Units 13:59 13:59 WBC 7.2 (3.8-10.6) k/uL RBC 5.26 (4.30-5.90) m/uL Hgb 15.9 (13.0-17.5) gm/dL Hct 48.9 (39.0-53.0) % MCV 93.1 (80.0-100.0) fL MCH 30.2 (25.0-35.0) pg MCHC 32.5 (31.0-37.0) g/dL RDW 13.0 (11.5-15.5) % Plt Count 316 (150-450) k/uL MPV 6.6 Neutrophils % 58 % Lymphocytes % 32 % Monocytes % 5 % Eosinophils % 2 % Basophils % 1 % Neutrophils # 4.2 (1.3-7.7) k/uL Lymphocytes # 2.3 (1.0-4.8) k/uL Monocytes # 0.3 (0-1.0) k/uL Eosinophils # 0.1 (0-0.7) k/uL Basophils # 0.1 (0-0.2) k/uL Sodium 139 (137-145) mmol/L Potassium 4.2 (3.5-5.1) mmol/L Chloride 104 (98-107) mmol/L Carbon Dioxide 24 (22-30) mmol/L Anion Gap 11 mmol/L BUN 15 (9-20) mg/dL Creatinine 0.73 (0.66-1.25) mg/dL Est GFR (CKD-EPI)AfAm >90 (>60 ml/min/1.73 sqM) Est GFR (CKD-EPI)NonAf >90 (>60 ml/min/1.73 sqM) Glucose 103 H (74-99) mg/dL Calcium 9.9 (8.4-10.2) mg/dL Salicylates 17.5 mg/dL Disposition Clinical Impression: Chronic headache Disposition: HOME SELF-CARE Condition: Fair Instructions (If sedation given, give patient instructions): Acute Headache (ED) Is patient prescribed a controlled substance at d/c from ED?: No Referrals: None,Stated [Primary Care Provider] - 1-2 days Time of Disposition: 15:03
[2024-05-06] MEDS: SODIUM CHLORIDE 0.9% 1,000 ML IV STA (14:01)
[2024-05-06] MEDS: diphenhydrAMINE 50 MG/ML 1 ML VIAL IVP STA (14:02)
[2024-05-06] MEDS: KETOROLAC 15 MG/ML 1 ML VIAL IVP STA (14:04)
[2024-05-06] MEDS: ONDANSETRON 4 MG/2 ML VIAL IVP STA (14:05)
[2024-05-06 14:20] LABS: Basophils # (A) 0.1 k/uL (0-0.2); Basophils % (A) 1 %; Eosinophils # (A) 0.1 k/uL (0-0.7); Eosinophils % (A) 2 %; HCT 48.9 % (39.0-53.0); HGB 15.9 gm/dL (13.0-17.5); Lymphocytes # (A) 2.3 k/uL (1.0-4.8); Lymphocytes % (A) 32 %; MCH 30.2 pg (25.0-35.0); MCHC 32.5 g/dL (31.0-37.0); MCV 93.1 fL (80.0-100.0); Mean Platelet Volume 6.6; Monocytes # (A) 0.3 k/uL (0-1.0); Monocytes % (A) 5 %; Neutrophils # (A) 4.2 k/uL (1.3-7.7); Neutrophils % (A) 58 %; Platelet Count 316 k/uL (150-450); RBC 5.26 m/uL (4.30-5.90); WBC 7.2 k/uL (3.8-10.6)
--- NOTE | 2024-05-06 14:44 | CT ---
EXAMINATION TYPE: CT brain wo con DATE OF EXAM: 05/06/2024 2:24 PM COMPARISON: 02/17/2023. CLINICAL INDICATION: Male, 33 years old with history of headache, MCRAE for 2 months TECHNIQUE: Brain: Axial CT images of the brain were obtained with coronal and sagittal reformats created and rev iewed. Contrast used: None. Oral contrast used: None. CT DLP: 1113.4 mGycm, Automated exposure control for dose reduction was used. FINDINGS: Brain: Extra-axial spaces: No abnormal extra-axial fluid collections. Ventricular system: Within normal limits Cerebral parenchyma: No acute intraparenchymal hemorrhage or mass effect. The saba-white junction is well differentiated. Cerebellum: Unremarkable. Mass effect: No evidence of midline shift. Intracranial vasculature: unremarkable Soft tissues: Normal. Calvarium/osseous structures: No depressed skull fracture. Paranasal sinuses and mastoid air cells: Mild scattered paranasal sinus disease. Visualized orbits: Orbital contents are intact. IMPRESSION: No acute intracranial process. [facility], , 05/06/2024 2:41 PM
[2024-05-06 14:45] LABS: African American GFR (CKD) >90 (>60 ml/min/1.73 sqM); Anion Gap 11 mmol/L; Blood Urea Nitrogen 15 mg/dL (9-20); Calcium 9.9 mg/dL (8.4-10.2); Carbon Dioxide 24 mmol/L (22-30); Chloride 104 mmol/L (98-107); Glucose 103 mg/dL (74-99); Non-African American GFR(CKD) >90 (>60 ml/min/1.73 sqM); Potassium 4.2 mmol/L (3.5-5.1); Salicylate 17.5 mg/dL; Sodium 139 mmol/L (137-145)
[2024-05-06 15:15] VITALS: BP 128/70; PULSE 76; RESP 20; TEMP 98.2
== END 2024-05-06 15:14 | disposition home or self-care (01) ==
LOC: EC 12:23
DX: R51.9 Headache, unspecified (principal); F17.290 Nicotine dependence, other tobacco product, uncomplicated
CPT/HCPCS: 36415; 80048; 85025; 80179; 70450; 99284; 96374; 96375; 96361; J1200; J2405; J1885